=== PATIENT | female | born 1995 | race Caucasian/White ===

== ENCOUNTER 2019-06-06 13:14 | Outpatient (RCR) | payer OTHER, SELFPAY ==
[2019-06-06 14:42] LABS: Hematocrit 34.3 % (37.0-47.0); Hemoglobin 11.7 g/dL (12.0-15.0)
[2019-06-06 14:55] LABS: Glucose 1 Hour PP 50gm Dose 93 mg/dL
[2019-06-06 15:36] LABS: HIV 1/2 Ab P24 Ag Result Negative (Negative)
[2019-06-06 16:07] LABS: Rapid Plasma Reagin Non-Reactive (NonReactive)
[2019-06-08] MEDS: RHO(D) IMMUNE GLOBULIN 300 MCG SYRINGE IM (12:57)
== END 2019-09-04 23:59 | disposition home or self-care (01) ==
LOC: ANHLAB 13:14
PROVIDERS: Visit Provider Advanced Practice Midwife
DX: Z36.89 Encounter for other specified antenatal screening (principal); Z29.13 Encounter for prophylactic Rho(D) immune globulin; O36.0130 Maternal care for anti-D [Rh] antibodies, third trimester, not applicable or unspecified; Z3A.00 Weeks of gestation of pregnancy not specified
CPT/HCPCS: 36415; 82947; 85014; 85018; 86592; 86703; 86900; 86901; 90384; 96372; G0432; J2790

== ENCOUNTER 2019-08-17 13:53 | Observation (INO) | payer OTHER, BC, SELFPAY ==
[2019-08-17 14:30] VITALS: BMI 37.5
[2019-08-17 15:32] LABS: Add Urine Microscopic? YES; Amorphous Sediment Urine Few; Appearance Urine Clear (Clear); Bacteria Urine Trace /hpf; Bilirubin Urine Negative (Negative); Blood Urine Negative (Negative); Color Urine Yellow (Yellow); Glucose Urine UA Negative (Negative); Ketones Urine Trace mg/dL (Negative); Leukocyte Esterase Ur Trace LEU/UL (NEGATIVE); Mucus Urine Few /lpf; Nitrate Urine Negative (Negative); Protein Urine Negative (Negative); RBC Urine 0-2 /hpf (0-2); Specific Grav Ur 1.018 (1.001-1.035); Squamous Epithelial Cell Urine Rare /hpf (Few); Urobilinogen Urine Negative mg/dL (<2.0); WBC Urine 0-3 /hpf (0-3)
--- NOTE | 2019-08-17 15:45 | PCDIET ---
PT STATES THAT SHE WAS FEELING CONTRACTIONS THIS MORNING BUT IT SPACED OUT. SHE WAS CONCERNING THAT SHE HAD CONTRACTIONS THIS AM 10 MIN APART. DENIES LEAKING FLUID, VAGINAL BLEEDING. OFF MONITOR AT THIS TIME DUE TO REACTIVE TRACING AND NO CONTRACTIONS. SHE STATES SHE HAS BEEN THROWING UP SINCE THIS MORNING AND JUST DONT FEEL GOOD. WILL TALK TO DR. TOMLINSON AND REQUEST NISHAAN ORDER.
--- NOTE | 2019-08-17 17:11 | PC.NURSE ---
TALKED TO PT AND ASKED IF SHE WAS FEELING ANY CONTRACTIONS. SHE SATES SHE DOESN'T FEEL CONTRACTIONS NOW, BUT SHE WAS HAVING EVERY 10 MIN THIS MORNING. SHE SATES SHE HAS BEEN THROWING UP AND HAVE NOT FEELING GOOD. NO LEAKING REPORTED. UA HAS BEEN SENT. WILL CONTACT DR TOMLINSON.
--- NOTE | 2019-08-21 14:20 | PM.OBTRLD ---
OB - Triage/Final Diagnosis Evaluation Laboratory results: Laboratory Tests 08/17/19 15:18 Urine Color Yellow Urine Appearance Clear Urine pH 6.0 Ur Specific [place] 1.018 Urine Protein Negative Urine Glucose (UA) Negative Urine Ketones Trace Ur Blood (Man) Negative Urine Nitrate Negative Urine Bilirubin Negative Urine Urobilinogen Negative Ur Leukocyte Esterase Trace H Urine RBC 0-2 Urine WBC 0-3 Ur Squamous Epith Cells Rare Amorphous Sediment Few H Urine Bacteria Trace Urine Mucus Few H Final Diagnosis (1) contractions: Code(s): O47.9 - False labor, unspecified Status: Acute
== END 2019-08-17 16:32 | disposition home or self-care (01) ==
PROVIDERS: Admitting Provider Obstetrics & Gynecology; Visit Provider Obstetrics & Gynecology
DX: O47.03 False labor before 37 completed weeks of gestation, third trimester (principal); Z3A.35 35 weeks gestation of pregnancy
CPT/HCPCS: 81001; 87086; A9270; G0378; G0379

== ENCOUNTER 2019-09-16 05:53 | Inpatient (IN) | payer BC, SELFPAY ==
[2019-09-16] VITALS (121 sets, daily range): BP systolic 86–164; BP diastolic 49–115; PULSE 27–245; RESP 18; TEMP 36.2–37.2; O2SAT 78–100; BMI 38.9
--- NOTE | 2019-09-16 05:53 | LDADM ---
This patient, Isabella Contreras, was admitted to Labor/Delivery/Recovery 105 on 09/16/19 at 05:53. Plans for labor, pain management and were discussed with patient. Patient/family oriented to hospital policies and general routines including ID bracelet, bed and alarms, visiting hours, pain management, procedures, bathroom and other care routines, personal items, smoking policy, room service/diet and guest tray routines, infant security routines, and visiting hours. Patient/Family are encouraged to report perceived risks to care and to ask questions if they do not understand what they are told or what they should do. See OBIX for further documentation.
[2019-09-16] MEDS: AMPICILLIN 2 GM/NS 100 ML 2 GM/100 ML BAG IVPB (06:45)
[2019-09-16] MEDS: LACTATED RINGERS 1,000 ML 125 ML IV CONT ×2 (06:54→10:00)
[2019-09-16 07:01] LABS: Basophils Percent Auto 0.4 % (0.2-1.2); Eosinophils Absolute Auto 0.1 K/mm3 (0-0.3); Eosinophils Percent Auto 1.1 % (0-4.4); Hematocrit 33.8 % (37.0-47.0); Hemoglobin 11.2 g/dL (12.0-15.0); Immature Granulocyte Absolute 0.05 K/mm3 (0.00-0.031); Immature Granulocyte Percent A 0.7 % (0-0.5); Lymphocytes Absolute Auto 1.87 K/mm3 (0.9-3.2); Lymphocytes Percent Auto 25.8 % (18.3-44.2); Mean Corpuscular HGB Conc 33.1 g/dl (32-36); Mean Corpuscular Hemoglobin 27.9 pg (26-34); Mean Corpuscular Volume 84.1 fl (80-100); Mean Platelet Volume 11.7 fl (7.4-10.4); Monocytes Absolute Auto 0.7 K/mm3 (0.1-0.6); Monocytes Percent Auto 9.5 % (2.6-8.5); Neutrophils Absolute Auto 4.5 K/mm3 (1.3-6.7); Neutrophils Percent Auto 62.5 % (45.5-73.1); Platelet Count Result 215 k/mm3 (150-375); Red Blood Count 4.02 M/mm3 (4.2-5.4); White Blood Count 7.3 K/mm3 (4.5-10.0)
[2019-09-16] MEDS: OXYTOCIN 30 UNITS/NS 500 ML 30 UNITS/500 ML BAG IV CONT (07:10)
--- NOTE | 2019-09-16 08:48 | WPDOBADMIT ---
Obstetrics - Admit Note Admission Note: 24 y/o @ 39w2d here for induction of labor Cervix2-3/thick/-2 AROM moderate amount of clear odorless fluid. Anticipate record reviewed. No pertinent additions to the history and/or any subsequent changes in the physical findings that are not consistent with the expected course of the were found. Additions to the history and/or subsequent changes in the physical findings follow. None.
[2019-09-16] MEDS: AMPICILLIN 1 GM/NS 50 ML 1 GM/50 ML BAG IVPB (10:48)
--- NOTE | 2019-09-16 14:55 | P.PCNOB_ITS ---
OB - Delivery Note Procedure Delivery date: 09/16/19 Induction method: per pitocin protocol Delivery monitor: external FHT and external uterine Route of delivery: Episiotomy description: None Laceration description: Perineal - 1st Degree Delivery repair: vicryl Estimated blood loss (mL): 184 Anesthesia type: Epidural [place] Baby Date of : 09/16/19 Time of : 14:19 Weeks of gestation at delivery: 39 Weight (pounds): 8 Weight (ounces): 0 presentation: vertex position: Left Occiput Anterior Placenta delivery description: Spontaneous score one minute: 9 score five minutes: 9
[2019-09-16] MEDS: OXYTOCIN 30 UNITS/NS 500 ML 30 UNITS/500 ML BAG 125 UNITS IV CONT (15:35)
[2019-09-16] MEDS: BENZOCAINE 20% AER SPR (*SP) 56 GM CAN 1 SPRAY TOPICAL (17:15)
[2019-09-16] MEDS: WITCH HAZEL 40 PADS 1 PAD TOPICAL (17:15)
[2019-09-16 17:21] LABS: HIV 1/2 Ab P24 Ag Result Negative (Negative)
[2019-09-16] MEDS: IBUPROFEN 600 MG TABLET PO (17:44)
[2019-09-17] MEDS: IBUPROFEN 600 MG TABLET PO (03:50)
[2019-09-17 04:56] LABS: Hematocrit 30.6 % (37.0-47.0); Hemoglobin 9.9 g/dL (12.0-15.0)
[2019-09-17 08:50] VITALS: BP 122/73; PULSE 70; RESP 20; TEMP 36.6
[2019-09-17] MEDS: POLYSACCHARIDE IRON COMPLEX 150 MG CAPSULE PO (09:20)
[2019-09-17] MEDS: MULTIVIT/MIN/PREN/FOL AC/IRON TABLET 1 TAB PO (09:20)
[2019-09-17] MEDS: DOCUSATE SODIUM 100 MG CAPSULE PO (09:20)
[2019-09-17] MEDS: TETANUS,DIPHTHERIA,AC PERTUSSIS ADULT (0.5 ML) BOOSTRIX IM (09:20)
--- NOTE | 2019-09-17 10:03 | WPDANLDPN2 ---
Anes-Prog Note L&D Date/Time: 09/17/19 10:03 Comfortable throughout: labor and delivery Neuraxial method: epidural Epidural/Spinal procedure site: clean & non-tender Neuro status: Neuro function grossly intact. Cardiovascular status: normal Respiratory status: normal Airway patency: baseline Mental status: baseline Post-Op hydration status: normal Vital Signs: Last Vital Signs Temp 36.6 C 09/17/19 08:50 Pulse 70 09/17/19 08:50 Resp 20 09/17/19 08:50 BP 122/73 09/17/19 08:50 Pulse Ox 99 09/16/19 19:37 I/O: Intake & Output 09/16/19 09/17/19 09/17/19 23:59 07:59 15:59 Output Total 150 Balance -150 Post-procedural complaints: none Patient feedback: Patient satisfied with anesthetic care.
--- NOTE | 2019-09-17 12:37 | PM.OBPNVD ---
OB - PN: Subj Subjective Date/time seen: 09/17/19 12:37 OB - PN: Obj Data Labs CBC & Chem 7: 09/17/19 04:35 Labs: Laboratory Results - last 24 hr 09/16/19 09/17/19 16:21 04:35 Hgb 9.9 L Hct 30.6 L HIV 1&2 Ab/P24 Ag 4thGn Negative OB - PN A/P Plan day: 1 Plan: routine care and discharge home (RTC 4 weeks) Time Spent With Patient Time: Total time spent is greater than 50% in coordination of care (as documented) at patient's floor/unit and/or counseling patient: Time with patient: less than 15 minutes Review of Systems Review of Systems: All systems reviewed & are unremarkable except as noted in HPI and below Exam Narrative: Exam Narrative: Fundus firm and vaginal flow controlled. Const: General: comfortable Chest: Breast/axilla inspection: normal inspection of the breasts Resp: Effort & Inspection: normal respiratory effort Cardio: Rate: regular rate Psych: Appearance: grossly normal Affect: normal affect Attitude: cooperative Judgement: Good judgement present (Psych)
--- NOTE | 2019-09-17 12:38 | P.DS_ITS ---
DS: Admitting Diagnosis Admitting Diagnosis Admitting Diagnosis: Induction of labor DS: Discharge Diagnosis Discharge Diagnosis (1) Vaginal delivery: Code(s): O80 - Encounter for full-term uncomplicated delivery Status: Acute OB - DS: Summary OB Procedures : None OB Procedures Intrapartum: Spontaneous Vag Delivery OB Procedures: : None Time Spent with Patient Time attestation: Total time spent providing and/or coordinating discharge services: DS: Data Data Completed and Pending Labs on day of discharge: Labs from last 24 hours 09/17/19 09/16/19 04:35 16:21 Hgb 9.9 L Hct 30.6 L HIV 1&2 Ab/P24 Ag 4thGn Negative Discharge Plan Discharge Attending physician on discharge: Priscilla Medeiros Discharging Clinician: Priscilla Medeiros Patient Disposition: Home, Self-Care Activity: pelvic rest Diet: as tolerated Patient Instructions: Antibiotic Form Stand Alone Forms: General Discharge Information Follow-up/Referrals: Priscilla Medeiros, CNM [Certified Nurse Production Editor] - Discharge Medications: Continued PNV cmb#95-ferrous fumarate-FA [] 28 mg iron- 800 mcg Tablet 1 tablet PO DAILY RF: 0 Date of admission: 09/16/19 05:53 Primary Care Provider: PHYSICIAN,MARKETING INFORMATION COORDINATOR Admitting Provider: Brittany Higginbotham Attending physician on admission: Brittany Higginbotham
[2019-09-18 07:54] VITALS: BP 138/78; PULSE 87; RESP 20; TEMP 37.2; O2SAT 99
[2019-09-18 10:02] LABS: Rapid Plasma Reagin Non-Reactive (NonReactive)
== END 2019-09-17 15:57 | disposition home or self-care (01) | DRG 807 ==
LOC: ANHLDR 06:02 → ANHOB2 17:29
PROVIDERS: Advanced Practice Midwife; Admitting Provider Obstetrics & Gynecology; Visit Provider Obstetrics & Gynecology
DX: O99.824 Streptococcus B carrier state complicating childbirth (principal); Z37.0 Single live birth; O70.0 First degree perineal laceration during delivery; Z3A.39 39 weeks gestation of pregnancy
CPT/HCPCS: 36415; 85014; 85018; 85025; 86592; 86703; 86850; 86900; 86901; 90715; A9270; G0432; J0290; J2590; J2795; J7120

== ENCOUNTER 2020-04-12 14:55 | Emergency (ER) | payer OTHER, SELFPAY ==
[2020-04-12 15:37] VITALS: BP 128/82; PULSE 67; RESP 16; TEMP 36.6; O2SAT 98
[2020-04-12 16:37] LABS: Basophils Percent Auto 0.6 % (0.2-1.2); Eosinophils Absolute Auto 0.1 K/mm3 (0-0.3); Hematocrit 42.4 % (37.0-47.0); Hemoglobin 14.5 g/dL (12.0-15.0); Immature Granulocyte Absolute 0.01 K/mm3 (0.00-0.031); Immature Granulocyte Percent A 0.2 % (0-0.5); Lymphocytes Absolute Auto 2.59 K/mm3 (0.9-3.2); Lymphocytes Percent Auto 39.5 % (18.3-44.2); Mean Corpuscular HGB Conc 34.2 g/dl (32-36); Mean Corpuscular Hemoglobin 29.2 pg (26-34); Mean Corpuscular Volume 85.5 fl (80-100); Mean Platelet Volume 11.2 fl (7.4-10.4); Monocytes Absolute Auto 0.4 K/mm3 (0.1-0.6); Monocytes Percent Auto 5.9 % (2.6-8.5); Neutrophils Absolute Auto 3.4 K/mm3 (1.3-6.7); Neutrophils Percent Auto 51.8 % (45.5-73.1); Platelet Count Result 240 k/mm3 (150-375); Red Blood Count 4.96 M/mm3 (4.2-5.4); Red Cell Distribution Width 12.4 % (11.5-14.5); White Blood Count 6.6 K/mm3 (4.5-10.0)
--- NOTE | 2020-04-12 16:50 | ECG_ITS ---
Measurements Intervals [place] Rate: 64 P: 51 MD: 168 QRS: 38 QRSD: 89 T: 30 QT: 413 QTc: 427 Interpretive Statements SINUS RHYTHM WITH MARKED SINUS ARRHYTHMIA NORMAL ECG Electronically Signed On 04-12-2020 19:21:26 KITCHEN DESIGNER by Michael Trammell D.O.
--- NOTE | 2020-04-12 16:51 | ED.RECABL ---
HPI - Recheck/Abnormal Lab/Rx General Chief Complaint: Recheck/Abnormal Lab/Rx Stated Complaint: possible low HGb, sent from OB Time Seen by Provider: 04/12/20 16:44 Source: patient Mode of arrival: ambulatory Limitations: no limitations History of Present Illness HPI narrative: This patient is 24 year old female who presents for evaluation of possible anemia. She is complaining of weakness and lightheadedness. She states she feels clumsy but she denies fall or syncope. She reports mild frontal headache. She denies nausea, vomiting, chest pain, shortness of breath , abdominal pain or fever. She reports history of anemia in the past so she was concerned her symptoms were due to anemia. She reports having longer than usual menstrual cycles although she does not having bleeding now. Related Data Home Medications Medication Instructions Recorded Confirmed PNV cmb#95-ferrous fumarate-FA 1 tablet PO DAILY 08/25/19 08/25/19 [] Allergies Allergy/AdvReac Type Severity Reaction Status Date / Time No Known Allergies Allergy Verified 04/12/20 15:42 Review of Systems Review of Systems: All systems reviewed & are unremarkable except as noted in HPI and below Constitutional: Constitutional: Denies chills, Reports fatigue and Denies fever(s) Eyes: Eyes: Denies change in vision ENT: Reports dizziness Cardiovascular: Cardiovascular: Denies chest pain Respiratory: Respiratory: Denies cough and Denies dyspnea Gastrointestinal: Gastrointestinal: Denies abdominal pain, Denies diarrhea, Denies nausea and Denies vomiting PMFSH Past Medical History Medical History (Updated 04/12/20 @ 19:40 by Araseli Damon MD) Anemia Family History Family History (Updated 08/25/19 @ 12:36 by Meredith Garner RN) Mother Pulmonary embolism Anemia Grandparent Diabetes mellitus Social History Social History Smoking status: Former smoker Second hand tobacco smoke exposure: No Substance use: never Gender identity (if verbalized by the patient): Female Spiritual care concerns: No Exam Narrative: Exam Narrative: GENERAL: Well-appearing, well-nourished, and in no acute distress. HEAD: Normocephalic, atraumatic EYES: PERRLA and EOMI, conjunctiva clear without discharge THROAT:Mucous membranes moist, Oropharynx normal without erythema, exudate, peritonsillar swelling or fluctuance NECK: Supple, without lymphadenopathy or mass RESPIRATORY: No respiratory distress, Airway patent, Respirations non-labored, Clear to auscultation without rales, rhonchi or wheeze HEART: Regular rate and rhythm. No murmur heard. Normal peripheral pulses. ABDOMEN: Soft, nontender, nondistended, normal active bowel sounds. No masses. No rebound or guarding, No organomegaly. EXTREMITIES: No edema, normal strength with full range of motion. SKIN: Warm, dry, normal color without rash NEURO: Alert and oriented x3. CN 2-12 grossly intact. No focal deficits. steady gait PSYCH: Normal mood and affect. Course Reevaluation(s) Reevaluation #1: I Discussed with patient labs and EKG are unremarkable. She started crying stating that she does not feel well. She reports frequent headaches since her and she states she has intermittent blurred vision. I discussed I will order CT scan brain to assess. Date: 04/12/20 Time: 18:27 Reevaluation #2: Nursing staff states patient does not want CT scan. I went to speak to patient and her mother. She states she does not want CT . She already had IV taken out so medications could not be given. She is signing AMA which note risk of AMA Date: 04/12/20 Time: 18:45 Vital Signs Vital signs: Vital Signs Temperature 97.8 F 04/12/20 15:37 Pulse Rate 67 04/12/20 15:37 Respiratory Rate 16 04/12/20 15:37 Blood Pressure 128/82 04/12/20 15:37 Pulse Oximetry 98 04/12/20 15:37 Temperature 97.8 F 04/12/20 15:37 Pulse Rate 75 04/12/20 17:29 Respiratory Rate 16 0
[2020-04-12 17:13] LABS: Alanine Aminotransferase 21 U/L (4-35); Albumin Level 4.7 g/dL (3.5-5.1); Alkaline Phosphatase 60 U/L (38-126); Anion Gap 6 mmol/L (8-16); Aspartate Amino Transferase 27 U/L (14-36); Bilirubin,Total 0.4 mg/dL (0.2-1.3); Blood Urea Nitrogen 11 mg/dL (7-17); Calcium 9.9 mg/dL (8.4-10.2); Carbon Dioxide 27 mmol/L (22-30); Chloride 106 mmol/L (98-107); Estimated CRCL calculation 150 ml/min; Estimated Glomerular Filt Rate > 60; Glucose 89 mg/dL (65-105); Potassium 4.2 mmol/L (3.4-5.0); Sodium 139 mmol/L (137-145)
[2020-04-12 17:28] VITALS: BP 136/82; PULSE 66
[2020-04-12 17:29] VITALS: BP 140/88; BP 163/107; PULSE 57; PULSE 75
[2020-04-12] MEDS: SODIUM CHLORIDE 0.9% IV 1,000 ML 999 ML IV CONT (17:46)
[2020-04-12 18:06] LABS: INR 0.9; Prothrombin Time 12.6 Seconds (11.1-14.7)
--- NOTE | 2020-04-12 18:30 | PC.NURSE ---
Called to room. Pt sitting on stretcher dressed and crying. States she doesn't want a CT or further meds since the doctor can't find anything wroing with her. Explained to pt that a CT was ordered because of her symptoms of headache and blurred vision.
== END 2020-04-12 18:43 | disposition left against medical advice (07) ==
PROVIDERS: Emergency Medicine; Emergency Provider General Practice; PCP Family Medicine
DX: R53.1 Weakness (principal); R51.9 Headache, unspecified; Z86.2 Personal history of diseases of the blood and blood-forming organs and certain disorders involving the immune mechanism; Z87.891 Personal history of nicotine dependence
CPT/HCPCS: 36415; 80053; 83735; 85025; 85610; 85730; 93005; 99283; J7030

== ENCOUNTER 2023-03-06 11:35 | Emergency (ER) | payer OTHER, SELFPAY ==
[2023-03-06 11:53] VITALS: BP 141/87; PULSE 87; RESP 16; TEMP 37; O2SAT 97
--- NOTE | 2023-03-06 12:40 | ED.URI ---
HPI - URI/Sore Throat General Chief Complaint: Upper Respiratory Infection Stated Complaint: Congestion Time Seen by Provider: 03/06/23 12:42 Source: patient, RN notes reviewed and old records reviewed Mode of arrival: ambulatory Limitations: no limitations History of Present Illness HPI Narrative: 27 year old female who presents to [facility] care with complaints of cough, hoarseness,runny nose and congestion since 2 days ago. Patient reports that she has not had a sore throat and has not had any fevers. Patient reports that she took one dose of left over Amoxicillin she had, used her son's nebulizer for 2 treatments and has taken Robitussin and taken some Mucinex DM.Patient reports no known history of asthma,denies any shortness of breath or any noted wheezing,respirations nonlabored with SAO2 97% on room air. MD elicited complaint: cough, rhinorrhea, nasal congestion and other (hoarseness) Onset (ago): day(s) (2) Able to tolerate fluids by mouth: Yes Treatments prior to arrival: other (Robitussin, Mucous DM, used son's nebulizer and also one dose of left over Amoxicillin) Related Data Home Medications Medication Instructions Recorded Confirmed norgestimate 0.25 mg-ethinyl tablet 03/06/23 estradiol 35 mcg tablet (Estarylla) Allergies Allergy/AdvReac Type Severity Reaction Status Date / Time No Known Allergies Allergy Verified 03/06/23 11:46 Review of Systems Review of Systems: CONSTITUTIONAL: Denies malaise, chills, sweats, or fever. EYES: Denies visual changes, redness, or discharge. ENT: Reports rhinorrhea, congestion, sinus pain,no otalgia and no sore throat, reports hoarseness CARDIOVASCULAR: Denies chest pain, palpitations, or edema. RESPIRATORY: Reports cough.? Denies dyspnea. GASTROINTESTINAL: Denies abdominal pain, nausea, vomiting, diarrhea SKIN: Denies rash or itching. MUSCULOSKELETAL: Denies myalgia. NEUROLOGIC: Denies headache. All systems reviewed & are unremarkable except as noted in HPI and below PMFSH Past Medical History Medical History (Updated 03/08/23 @ 17:19 by Nani Armando NP) Anemia Surgical History Surgical History (Updated 03/08/23 @ 17:15 by Nani Armando NP) History of surgery on arm repair of fractured ulna Family History Family History (Updated 08/25/19 @ 12:36 by Meredith Garner RN) Mother Pulmonary embolism Anemia Grandparent Diabetes mellitus Social History Social History Smoking status: Former smoker Second hand tobacco smoke exposure: No Substance use: never Gender identity (if verbalized by the patient): Female Sexual Orientation (if Verbalized by the Patient): Straight or Heterosexual Spiritual care concerns: No Comments At time of signature, agree with nursing past medical, surgical, social and family history. There is no relevant family history pertinent to the presenting complaint Exam Narrative: GENERAL: Well-appearing, well-nourished, and in no acute distress. HEAD: Normocephalic EYES: PERRLA, conjunctivae clear ENT: Nares clear, turbinates edematous and erythematous, clear discharge. Mucous membranes moist. TM pearly ward with dull light reflex bilaterally; no tragal tenderness. Oropharynx erythematous without lesions. Tonsils not enlarged and without exudate, no drooling, positive for hoarseness, no trismus, uvula midline.post nasal drainage noted NECK: Supple. No lymphadenopathy CHEST: Clear to auscultation, breath sounds equal. No wheezing, rhonchi, rales, or stridor. No respiratory distress, speaks in full sentences.cough,SAO2 97% on room air HEART: Regular rate and rhythm. No murmur heard. SKIN: Warm, dry, no rash. NEURO: Alert and oriented x3. PSYCH: Normal mood and affect Course Course Emergency Course: Patient is aware of diagnosis, understands and agrees to treatment plan.? Anticipatory guidance given.? Patient agrees to follow-up as directed and is aware
== END 2023-03-06 13:20 | disposition home or self-care (01) ==
PROVIDERS: Emergency Provider Registered Nurse
DX: J06.9 Acute upper respiratory infection, unspecified (principal)
CPT/HCPCS: 99213; G0463

== ENCOUNTER 2024-10-02 08:46 | Emergency (ER) | payer OTHER, SELFPAY ==
[2024-10-02 08:56] VITALS: BP 97/80; PULSE 109; RESP 16; TEMP 36.2; O2SAT 100
--- NOTE | 2024-10-02 09:08 | ED_ITS ---
HPI - General Adult General Chief complaint: Upper Respiratory Infection Stated complaint: Fever/Body aches Time Seen by Provider: 10/02/24 09:08 Source: patient Mode of arrival: ambulatory Limitations: no limitations History of Present Illness HPI narrative: 29-year-old female presents with complaint of fever, chills, sweats, fatigue, headache, joint pain for 2-3 days. Afebrile at this time. Denies nausea vomi ting diarrhea. No chest pain, shortness of breath. Denies congestion, sore throat, cough. 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 All systems reviewed and negative except as noted above. Related Data Home Medications ?Medication ?Instructions ?Recorded ?Confirmed ?Last Taken ?Type norgestimate 0.25 mg-ethinyl 1 tablet PO DAILY 03/06/23 10/02/24 Unknown History estradiol 0.035 mg tablet (Estarylla) dextroamphetamine-amphetamine ER 50 mg PO DAILY 10/02/24 10/02/24 Unknown History 25 mg 24hr capsule,extend release Allergies Allergy/AdvReac Type Severity Reaction Status Date / Time No Known Allergies Allergy Verified 10/02/24 08:59 Review of Systems Review of Systems: CONSTITUTIONAL: Reports fever, chills, or sweats. Reports fatigue EYES: Denies visual changes, redness, or discharge. ENT: Denies rhinorrhea, congestion, sore throat, or otalgia. CARDIOVASCULAR: Denies chest pain, palpitations, or edema. RESPIRATORY: Denies cough or dyspnea. GASTROINTESTINAL: Denies abdominal pain, nausea, vomiting, or diarrhea. GENITOURINARY: Denies dysuria or hematuria. SKIN: Denies rash or itching. MUSCULOSKELETAL: Denies back pain. Reports joint pain, or myalgia. NEUROLOGIC: Denies headache, numbness, or weakness. PSYCHIATRIC: Denies anxiety or depression. All other systems reviewed are negative, except as documented in HPI. [facility] Past Medical History Medical History (Updated 10/02/24 @ 09:38 by Brenna Minaya NP) Anemia Surgical History Surgical History (Updated 03/08/23 @ 17:15 by Nani Armando NP) History of surgery on arm repair of fractured ulna Family History Family History (Updated 08/25/19 @ 12:36 by Meredith Garner RN) Mother Pulmonary embolism Anemia Grandparent Diabetes mellitus Social History Social History Smoking status: Former smoker Second hand tobacco smoke exposure: No Substance use: never Gender identity (if verbalized by the patient): Female Sexual Orientation (if Verbalized by the Patient): Straight or Heterosexual Spiritual care concerns: No Comments At time of signature, agree with nursing past medical, surgical, social and family history. There is no relevant family history pertinent to the presenting complaint. Exam Narrative: GENERAL: This is a well-nourished, well-developed patient, in no apparent d istress. HEAD: normocephalic, atraumatic. EYES: PERRL. Sclera clear/white. Vision is grossly intact. EARS: External ears normal, auditory canals clear and without drainage, TMs normal without perforation. Hearing grossly intact. NOSE: External nose normal with no obvious nasal discharge, nares without redness, no rhinorrhea. THROAT: Mucous membranes moist, posterior pharynx clear. NECK: Neck supple, non-tender without lymphadenopathy, masses or thyromegaly. CARDIOVASCULAR: Regular rate and rhythm without murmurs, gallops, or rubs. RESPIRATORY: Clear to auscultation. Breath sounds equal bilaterally. No wheezes, rales, or rhonchi. SKIN: warm, Dry, intact with no suspicious lesions or rash, good texture and turgor. NEURO: awake, alert, and oriented to person, place and time. There were no obvious focal neurologic abnormalities. EXTREMITIES: No joint tenderness, effusion, or edema noted. Course Course Level of Care: Express Care Visit Vital Signs Vital signs: Vital Signs Temperature 36.2 C L 10/02/24 08:56 Pulse Rate 109 H 10/02/24 08:56 Respiratory Rate 16 10/02/24 08:56 Blood Pressure 97/80 L 10/02/24 08:56 Pulse Oximetry 100 10/02/24 08:56 Oxygen Delivery Room Air 10/02/24 08:56 Temperature 36.2 C L 10/02/24 08:56 Pulse Rate 109 H 10/02/24 08:56 Respiratory Rate 16 10/02/24 08:56 Blood Pressure 97/80 L 10/02/24 08:56 Pulse Oximetry 100 10/02/24 08:56 Oxygen Delivery Room Air 10/02/24 08:56 Reviewed Medical Decision Making MDM Narrative Medical decision making narrative: Negative COVID and influenza. Patient is well-appearing, nontoxic. Lungs clear to auscultation. No URI, urinary or GI symptoms. Recommend patient take [id number]-rogdsgy medications to treat viral symptoms. Will follow-up with primary care physician if symptoms are not improving. Differential Diagnosis Differential Diagnosis: COVID, influenza, viral infection Vital Signs Vital Signs: Vital Signs Temperature 36.2 C L 10/02/24 08:56 Pulse Rate 109 H 10/02/24 08:56 Respiratory Rate 16 10/02/24 08:56 Blood Pressure 97/80 L 10/02/24 08:56 Pulse Oximetry 100 10/02/24 08:56 Oxygen Delivery Room Air 10/02/24 08:56 Temperature 36.2 C L 10/02/24 08:56 Pulse Rate 109 H 10/02/24 08:56 Respiratory Rate 16 10/02/24 08:56 Blood Pressure 97/80 L 10/02/24 08:56 Pulse Oximetry 100 10/02/24 08:56 Oxygen Delivery Room Air 10/02/24 08:56 Lab Data Labs: Lab Results 10/02/24 Range/Units 09:29 POC Influenza A Ag Negative (Negative) POC Influenza B Ag Negative (Negative) POC SARS CoV-2 Ag Negative (Negative) Discharge Plan Discharge Clinical Impression: Acute viral syndrome Patient Disposition: Home Condition: Stable Instructions: Viral Syndrome (ED) Additional Instructions: Your COVID and influenza test was negative today. Your symptoms are viral and may last 7-10 days. Take ibuprofen or Tylenol every 6-8 hours as needed for fever and pain. Drink at least 64 oz of water a day. If symptoms are not improving follow-up with your primary care physician for further evaluation. If you have severe pain, chest pain or shortness of breath go to the ER Patient Language: Korean Prescriptions: No Action norgestimate-ethinyl estradiol [Estarylla] 0.25-35 mg-mcg tablet 1 tablet PO DAILY dextroamphetamine-amphetamine 25 mg capsule,extended release 24hr 50 mg PO DAILY Follow-up/Referrals: PHYSICIAN,DRY CLIPPER TENDER [Primary Care Provider] - Stand Alone Forms: Work/School Release IP Time of Disposition: 09:38
[2024-10-02 09:31] LABS: EDCOVIDSCREEN Negative (Negative); EDINFLUASCREEN Negative (Negative); EDINFLUBSCREEN Negative (Negative)
== END 2024-10-02 09:43 | disposition home or self-care (01) ==
PROVIDERS: Emergency Provider Nurse Practitioner Family
DX: B34.9 Viral infection, unspecified (principal); Z20.822 Contact with and (suspected) exposure to COVID-19; Z87.891 Personal history of nicotine dependence
CPT/HCPCS: 87426; 87804; 99212; G0463

== ENCOUNTER 2024-10-03 07:13 | Emergency (ER) | payer OTHER, SELFPAY ==
--- NOTE | ~2024-10-03 | XR_ITS ---
EXAMINATION: XR chest 1V 10/03/2024 10:18 INDICATION: Myalgias. Difficulty breathing. Shortness of breath. PROCEDURE: PA view of the chest COMPARISON: No prior studies for comparison. FINDINGS: The lungs are clear. The cardiomediastinal silhouette is within normal limits. There are no pleural effusions. There is no pneumothorax suspected. IMPRESSION: 1: NO ACUTE CARDIOPULMONARY DISEASE. Reviewed, dictated and finalized at location A.
--- NOTE | ~2024-10-03 | CT_ITS ---
EXAMINATION: CT cervical spine wo con DATE: 10/03/2024 10:13 INDICATION: Neck pain TECHNIQUE: Computed tomography (CT) of the cervical spine was performed without intravenous contrast. The dose-length product was 233 mGy-cm. Automated exposure control and iterative reconstruction tech nique were employed. COMPARISON: None FINDINGS: Vertebral body heights are maintained. No significant disc narrowing. There is mild degener ative change of the uncinate processes bilaterally. Odontoid process is normal. Craniovertebral junct ion is normal. No acute fracture or traumatic malalignment. No evidence for perched facet. Lung apice s are normal. IMPRESSION: 1. No acute abnormality of the cervical spine. Reviewed, dictated and finalized at location A.
--- NOTE | ~2024-10-03 | CT_ITS ---
EXAMINATION: CT BRAIN W/O DATE: 10/03/2024 10:13 INDICATION: Confusion. Body aches.. TECHNIQUE: Computed tomography (CT) of the head was performed without intravenous contrast. The dose- length product was 529.67 mGy-cm. Automated exposure control and iterative reconstruction technique w ere employed. COMPARISON: No prior studies for comparison. FINDINGS: Normal brain parenchymal volume for age. Normal ward-white differentiation. No acute intrac ranial hemorrhage, infarction, mass or mass effect. No ventriculomegaly or midline shift. Midline sagittal images demonstrate a normal corpus callosum, c raniovertebral junction and sella turcica. Basilar cisterns are patent. Paranasal sinuses and mastoids are pneumatized. No depressed skull fractures. IMPRESSION: 1. No acute intracranial abnormality. Reviewed, dictated and finalized at location A.
--- NOTE | ~2024-10-03 | CT_ITS ---
EXAMINATION: CTA chest PE abdomen pel DATE: 10/03/2024 11:58 CDT INDICATION: Shortness of breath and fevers. Abdomen pain. UTI. TECHNIQUE: Computed tomographic angiography (CTA) of the chest, abdomen, and pelvis was performed wit hout and with 100 mL Omnipaque-350 intravenous contrast. The dose-length product was 594.87 mGy-cm. M aximum intensity projection 3D-reconstructions of the aorta and other arteries were constructed by giovanna menon technologist on a separate workstation. Automated exposure control and iterative reconstruction meng hnique were employed. COMPARISON: None. FINDINGS: CHEST CTA: Study technically adequate without evidence for pulmonary embolism. No significant vascular abnormali ty. Heart size normal. No pleural or pericardial effusion. No endobronchial lesions. No focal airspac e consolidation no thoracic lymphadenopathy. No evidence for aortic aneurysm or dissection. ABDOMEN AND PELVIS CTA: No significant vascular abnormality. The liver, spleen, pancreas, adrenal glands are unremarkable. Th ere is patchy bilateral hypoperfusion of the kidneys. There is mild urothelial thickening on the righ t and left. No significant hydronephrosis. Nonobstructive bowel gas pattern. No acute osseous abnorma lity. No abnormal pelvic masses or fluid collections. No lymphadenopathy. Gallbladder is present. The liver, spleen, pancreas are unremarkable. IMPRESSION: 1. Patchy hypoperfusion of the kidneys with areas of urothelial thickening centered in the region of the renal pelvis bilaterally. Findings compatible with ascending urinary tract infection with pyelone phritis. Reviewed, dictated and finalized at location A. IMPRESSION: 1. Patchy hypoperfusion of the kidneys with areas of urothelial thickening cent ered in the region of the renal pelvis bilaterally. Findings compatible with as cending urinary tract infection with pyelonephritis.
--- OUTSIDE RECORDS SUMMARY | 2024-10-03 07:17 | XMS_ITS | Clinical Summary ---
Author Organization [facility] Virtual Care Address [facility] [place] [address] Phone Care Team Providers Care Welt Treater Name Role Phone Bhavna Holley NP Primary Care Provide r Allergies No known active allergies Medications ethynodiol diac-eth estradiol (KELNOR , ,) 1-35 mg-mcg per tablet TAKE ONE TABLET BY MOUTH EVERY DAY 28 11 09/26/[address] (PROTONIX) 40 mg EC tablet Take 1 tablet (40 mg total) by mouth daily 30 tablet 03/11/2024 Active Immunizations Immunization Administration Dates Next Due Rho (D) Immune Globulin 01/18/2017,09/07/2016 Surgical History Surgery Date Site/Laterality Comments OTHER SURGICAL HISTORY Arm fracture repair Medical History Medical History Date Comments Hx Other Medical History of anem ia; Comments: RED 09/28/2013 - Family History Medical History Relation Name Comments Leukemia Maternal Grandmother Leukemi a; Diabetes Other Family history of Diabetes mellitus; Other Other No family histo ry of breast cancer; Bone cancer Paternal Grandmother Cancer, bone; Relation Name Status Comments Maternal Grandmother Other Paternal Grandmother Social History Tobacco Use Types Packs/Day Years Used Date Smoking Tobacco: Every Day Alcohol Use Standard Drinks/Week Comments Yes 0 (1 standard drink = 0.6 oz pur e alcohol) Personal Safety Answer Date Recorded Have you ever been in or are you currently in a harmful physical or emotional relationship or is someone making you feel afraid or unsafe? Denies 03/11/2024 Comments Unknown Sex and Gender Information Value Date Recorded Sex Assigned at Not on file Legal Sex Female 1:53 AM UROLOGY PHYSICIAN ASSISTANT Gender Identity Female 03/13/2024 7:34 AM UROLOGY PHYSICIAN ASSISTANT Sexual Orientation Straight 03/13/2024 7: 34 AM UROLOGY PHYSICIAN ASSISTANT Obstetrics History Last Filed Vital Signs Vital Sign Reading Time Taken Comments Blood Pressure 131/79 03/11/2024 5:30 PM UROLOGY PHYSICIAN ASSISTANT Pulse 69 03/11/2024 5:30 PM UROLOGY PHYSICIAN ASSISTANT Temperature 36.6 C (97.8 F) 03/11/2024 2:45 PM UROLOGY PHYSICIAN ASSISTANT Respiratory Rate 18 03/11/2024 2:46 PM UROLOGY PHYSICIAN ASSISTANT Oxygen Saturation 100% 03/11/2024 5:30 PM UROLOGY PHYSICIAN ASSISTANT Inhaled Oxygen Concentration - - Weight 86.2 kg (190 lb) 03/11/2024 2:46 PM UROLOGY PHYSICIAN ASSISTANT Height 172.7 cm (5' 8) 03/11/2024 2:46 PM UROLOGY PHYSICIAN ASSISTANT Body Mass Index 28.89 03/11/2024 2:46 PM UROLOGY PHYSICIAN ASSISTANT Plan of Treatment Health Maintenance Due Date Last Done Comments Cervical Cancer Screening 1993 Depression Screening 1993 Hepatitis C Screening 1993 Varicella Vaccines (2 of 2 - 2-dose childhood series) 1997 08/14/1994 Regular Well Visit/Exam 18-64 07/30/2011 Pneumococcal vaccine <65 (1 of 2 - PCV) 2012 Influenza Vaccine (Season Ended) 2024 01/28/20 20 DTaP/Tdap/Td Vaccine (9 - Td or Tdap) 09/16/2029 09/17/2019, 11/02/2016, 03/20/2005, Additional history exists Hepatitis B Screening Completed 05/09/1994 , 1993, 1993 HPV Vaccines Completed 11/04/2007, 08/13, 06/07/2007, Additional history exists Insurance [facility] Care Teams Welt Treater Relationship Specialty Start Date End Date Bhavna Holley NP [address] [place] [address] PCP - General Emergency Medicine 03/11/24
--- OUTSIDE RECORDS SUMMARY | 2024-10-03 07:17 | XMS_ITS | Referral Summary ---
Author Organization [facility] Virtual Care Address [facility] [place] [address] Phone Care Team Providers Care Air Pumper Name Role Phone Bhavna Holley NP Primary Care Provide r Allergies No known active allergies Medications ethynodiol diac-eth estradiol (KELNOR , ,) 1-35 mg-mcg per tablet TAKE ONE TABLET BY MOUTH EVERY DAY 28 09/26/[address] (PROTONIX) 40 mg EC tablet Take 1 tablet (40 mg total) by mouth daily 30 tablet 03/11/2024 Active Immunizations Immunization Administration Dates Next Due Rho (D) Immune Globulin 01/18/2017,09/07/2016 Social History Tobacco Use Types Packs/Day Years [...] on file Legal Sex Female 1:53 AM TAKE OUT WAITRESS Gender Identity Female 03/13/2024 7:34 AM TAKE OUT WAITRESS Sexual Orientation Straight 03/13/2024 7: 34 AM TAKE OUT WAITRESS Last Filed Vital Signs Vital Sign Reading Time Taken Comments Blood Pressure 131/79 03/11/2024 5:30 PM TAKE OUT WAITRESS Pulse 69 03/11/2024 5:30 PM TAKE OUT WAITRESS Temperature 36.6 C (97.8 F) 03/11/2024 2:45 PM TAKE OUT WAITRESS Respiratory Rate 18 03/11/2024 2:46 PM TAKE OUT WAITRESS Oxygen Saturation 100% 03/11/2024 5:30 PM TAKE OUT WAITRESS Inhaled Oxygen Concentration - - Weight 86.2 kg (190 lb) 03/11/2024 2:46 PM TAKE OUT WAITRESS Height 172.7 cm (5' 8) 03/11/2024 2:46 PM TAKE OUT WAITRESS Body Mass Index 28.89 03/11/2024 2:46 PM TAKE OUT WAITRESS Plan of Treatment Not on file Insurance [facility] Care Teams Air Pumper Relationship Specialty Start Date End Date Bhavna Holley NP [address] [place] [address] PCP - General Emergency Medicine 03/11/24
--- OUTSIDE RECORDS SUMMARY | 2024-10-03 07:17 | XMS_ITS | Data Portability ---
Author Organization [facility]- Address [address] [facility] [place] [address] Care Team Providers Care Lime Boiler Name Role Phone SALINAS HENRIK Primary Care Provider [phone] Assessment No assessment recorded. Plan of Treatment Reminders Order Date Submit Date Provider Last Modified By Organization Details Last Modified Time Details Appointments None recorded. Lab None recorded. Referral None recorded. Procedures None recorded. Surgeries None recorded. Imaging None recorded. Medication Orders clindamycin HCl 300 mg capsule 2015 016 Not available 6 04:05:49 clindamycin HCl 150 mg capsule 2015 016 Not available 6 04:05:45 Patient TargetsNo targets recorded. Patient InstructionsNo instructions recorded. Reason for Referral None Reported. Problems No Known Problems Medical Equipment None Reported. Allergies No known drug allergies Medications Name Sig Start Date Stop Date Status Note LastModified by Organization Details LastModified Time clindamycin HCl 300 mg capsule Take 1 capsule 3 times a day by oral route for 7 days. 2015 active Not Available Not Available Not Avai lable fluconazole 150 mg tablet active Not Available Not Available No t Available clindamycin HCl 150 mg capsule Take 1 capsule 3 times a day by oral route for 7 days. 2015 active Not Available Not Available Not Avai lable sulfamethoxazol e 800 mg-trimethoprim 160 mg tablet active Not Available Not Availabl e Not Available Kelnor (28) 1 mg-35 mcg tablet active Not Available Not Available N ot Available Vitals Date Recorded Body height Body weight Body mass index (BMI) Heart rate Respiratory rate Body temperature Systolic And Diastolic Provider Name and Address Organization Details Last Updated DateTime 6 176.53 cm 08583.6 7 g 21.5 kg/m2 150 /min 20 /min 97.3 [degF] 104/70 mm[Hg] Nicolle Menon [place] [facility], 6 16:33:44 Social History None recorded. Functional Status None recorded. Mental Status None recorded. Family History Nothing Reported. Medical History No medical history recorded. Gynecological HistoryNo gynecological history recorded. Obstetrics History GPAL:G 0 P 0 0 0 0 Immunizations Vaccine Type Date Status Note Provider Nam e and Address Organization Details Recorded Time DTP 9 completed Merry Heller null, [place] [facility], 06/08/2019 17:21:01 MMR 9 completed Merry Heller null, [place] [facility], 06/08/2019 17:21:15 Tdap 6 completed Merry Heller null, [place] [facility], 06/08/2019 17:21:30 OPV, trivalent 9 completed Merry Heller null, [place] [facility], 06/08/2019 17:21:49 OPV, trivalent 5 completed Merry Heller null, [place] [facility], 06/09/2019 09:59:41 DTP 5 completed Merry Heller null, [place] [facility], 06/09/2019 10:00:08 Hib, unspecified formulation 5 completed Merry Heller null, [place] [facility], 06/09/2019 10:00:29 Hep B, adolescent or pediatric 4 completed Merry Heller null, [place] [facility], 06/09/2019 10:02:12 Hib, unspecified formulation 4 completed Mer[place] H[place] [facility], 06/09/2019 10:02:41 OPV, trivalent 4 completed Mer[place] [facility], 06/09/2019 10:02:50 DTP 4 completed Mer[place] H[place] [facility], 06/09/2019 10:03:00 OPV, trivalent 4 completed Mer[place] H[place] [facility], 06/09/2019 10:04:01 DTP-Hib 4 completed Mer[place] H[place] [facility], 06/09/2019 10:04:14 Hep B, adolescent or pediatric 5 completed Mer[place] H[place] null[place] [facility], 06/09/2019 10:08:34 MMR 5 completed Mer[place] H[place] [facility], 06/09/2019 10:09:01 varicella 5 completed Merry Heller null[place] [facility], 06/09/2019 10:09:12 DTP-Hib 4 completed [place] [facility], 06/09/2019 10:11:14 HPV, quadrivalent 6 completed Mer[place] H[place] [facility], 06/09/2019 10:17:34 Tdap 7 completed Mer[place] Heller null, [place] [facility], 06/09/2019 10:17:49 Hep B, adolescent or pediatric 4 completed Mer[place] H[place] null, [place] [facility], 06/09/2019 10:21:56 meningococcal ACWY, unspecified formulation 7 completed Mer[place] H[place] null[place] [facility], 06/09/2019 10:23:31 Hep A, ped/adol, 2 dose 7 completed Mer[place] Heller null[place] [facility], 06/09/2019 10:23:46 Hep A, ped/adol, 2 dose 8 completed Mer[place] H[place] null[place] [facility], 06/09/2019 10:23:51 HPV, unspecified formulation 8 completed [place] [facility], 06/09/2019 10:24:04 HPV, unspecified formulation 8 completed [place] [facility], 06/09/2019 10:24:11 HPV, unspecified formulation 8 completed Mer[place] H[place] null[place] [facility], 06/09/2019 10:24:17 Past Encounters Encounter ID Performer Location Encounter Start Date Encounter Closed Date Diagnosis/Indication Diagnosis SNOMED-CT Code Diagnosis ICD10 Code Diagnosis Note [id number] [facility] [address] [place] [address],[address] [place] [address] 07/08/2015 16:25:36 07/09/2015 14:53:20 Abscess [id number] L02.91 Probable MRSA Abscess with surroundin g cellulitis - based upon evidence based medicine, will cover with oral antibiotic due to cellulitis area. I have also given the parent a hand out regarding MRSA and a treatment protocol for eliminatio n of the problem. Will followup with family when culture results are known. Health Concerns Section Related Observation LastModified by Organization Detai ls LastModified Time None Recorded Concern Status LastModified by Organization Details LastModified Time None Recorded Advance Directives Directive None Recorded Payers Insurance Date Sequence Insurance Name Policy Number Policy Traore Covered Member ID Traore Member ID Guarantor Name 07/08/2015 1 [facility] [id number] Mitchell Contreras [id number] sIabella Contreras Notes Date Note Type Note Provider Name and Address Organization Details Recorded Time 07/08/2015 text/html Skin LesionRepor marge bypatient.Location:o ther location (left hip.) Duration:started (2 days ago.) Dischargeyellow-gree n Erythemaerythema Swellingswelling Personal historyhistory of MRSA/staph infection Exposuresno one with similar skin lesion Constitituonalno fever HEENTno current or recent upper respiratory infection Haley Hilario MD [address] [place] [address] [address], [place], [address], [facility], 07/08/2015 19:17:03 OBGyn Episode No OBEpisode recorded.
--- OUTSIDE RECORDS SUMMARY | 2024-10-03 07:17 | XMS_ITS | Clinical Summary ---
Author Organization [email or web address] Address [address] [place] [address] Care Team Providers Care Global Mobility Specialist Name Role Phone Unavailable Primary Care Provider Unavailabl e Source Comments [email or web address],non-owned Affiliates and Associated Physician Practices is amultiple site organization consisting of ambulatory clinics and hospital sitesin [place], [place], [place] and [place]. This disclosure is being madepursuant to the Care Everywhere program and may not contain all information available regarding this patient. Last updated 17.[email or web address] Allergies No known active allergies Medications * Be aware that medications may not be up to date on this document. Alwaysverify current medications with the patient. Vit-Fe Fumarate-FA ( VITAMIN) 27-0.8 MG tablet Take 1 tablet by mouth once daily Active Social History Tobacco Use Types Packs/Day Years Used Date Smoking Tobacco: Never Smokeless Tobacco: Never Tobacco Cessation:Counseling Given: Yes Comments No Sex and Gender Information Value Date Recorded Sex Assigned at Not on file Legal Sex Female 1:29 PM CDT Gender Identity Not on file Sexual Orientation Not on file Last Filed Vital Signs Vital Sign Reading Time Taken Comments Blood Pressure 110/64 03/11/2019 11:17 AM ELECTRICAL TEST ENGINEER Pulse 74 03/11/2019 11:17 AM ELECTRICAL TEST ENGINEER Temperature 37.1 C (98.8 F) 03/11/2019 11:17 AM ELECTRICAL TEST ENGINEER Respiratory Rate 16 03/11/2019 11:17 AM ELECTRICAL TEST ENGINEER Oxygen Saturation 97% 03/11/2019 11:17 AM ELECTRICAL TEST ENGINEER Inhaled Oxygen Concentration - - Weight 83.9 kg (185 lb) 03/11/2019 11:17 AM ELECTRICAL TEST ENGINEER Height 172.7 cm (5' 8) 03/11/2019 11:17 AM ELECTRICAL TEST ENGINEER Body Mass Index 28.13 03/11/2019 11:17 AM ELECTRICAL TEST ENGINEER Plan of Treatment Health Maintenance Due Date Last Done Comments HIV SCREENING 2008 HEPATITIS C SCREENING 07/25/2011 DTAP/TDAP/TD VACCINES (1 - Tdap) 2012 HEPATITIS B VACCINE (1 of 3 - 19+ 3-dose series) 2012 HPV VACCINE (1 - 3-dose SCDM series) 2020 COVID-19 VACCINE (1 - 2023-2 5 season) 2023 DEPRESSION SCREENING 03/15/2024 INFLUENZA VACCINE (#1) 2024 ZOSTER VACCINE (1 of 2) 07/30/2043 HIB VACCINE Aged Out No longer eligi ble based on patient's age to complete this topic MENINGOCOCCAL (Group B) VACC INE SHARED DECISION-MAKING Aged Out No longer eligibl e based on patient's age to complete this topic MENINGOCOCCAL GROUPS A/C/Y/W VACCINE Aged Out No longer eligible b ased on patient's age to complete this topic PNEUMOCOCCAL VACCINE Aged Out No long er eligible based on patient's age to complete this topic Insurance [facility]
--- OUTSIDE RECORDS SUMMARY | 2024-10-03 07:17 | XMS_ITS | Data Portability ---
[facility] Organization [facility] Address [address] [place] [address] Assessment No assessment recorded. Plan of Treatment Reminders Order Date Submit Date Provider Last Modified By Organization Details Last Modified Time Details Appointments None recorde [facility] pregnan cy test, urine 2018 019 deledsmith In-Office Order, Internal Use Only DO Not Attach Compendium DO Not Attach Compendium, Do Not Delete/merge, [id number] 15:30:38 bacteri al vaginos is + vaginit is panel, vaginal 2018 019 [facility], [address], [address], [place], [address], 9 07:12:10 urinaly sis, dipstic k 2017 018 rigoberto In-Office Order, Internal Use Only DO Not Attach Compendium DO Not Attach Compendium, Do Not Delete/merge, [id number] 15:19:05 pregnan cy test, urine 2017 018 [email or web address] In-Office Order, Internal Use Only DO Not Attach Compendium DO Not Attach Compendium, Do Not Delete/merge, [id number] 8 15:19:05 bacteri al vaginos is panel, vaginal 2017 018 [facility], [address], [address], [place], [address], 8 11:16:40 jens parapsi losis DNA, genital 2017 018 [facility], [address] [facility], [address], [place], [address], 8 11:16:40 CT + NG + TV, DNA, urine/s wab 2017 018 [facility], [address] [facility], [address], [place], [address], 8 07:14:31 Referral None recorde d. Procedures None recorde d. Surgeries None recorde d. Imaging None recorde d. Medication Orders flucona zole 150 mg tablet 2018 [id number], [address], [place], [place], [id number], 9 16:25:44 medroxy progest erone 150 mg/mL intramu scular syringe [address] [id number], [address], [place], [place], [id number], 8 15:19:05 medroxy progest erone 150 mg/mL intramu scular suspens ion [address] [id number], [address], [place], [place], [phone], 8 13:07:51 Patient TargetsNo targets recorded. Patient InstructionsNo instructions recorded. Reason for Referral None Reported. Results Created Date Observation Date Name Description Value Unit Range Abnormal Flag Note LastModifiedBy Organization Detail LastModifiedTime 05/22/19 18 05/24/2017 CT + NG + TV, DNA, urine /swab chlamydia by CIARAN Negati ve negati ve Not Available [facility] ([facility]) [address], [place], [address], 05/25/2017 07:14:31 05/22/19 18 05/24/2017 CT + NG + TV, DNA, urine /swab gonococcus by CIARAN Negati ve negati ve Not Available [facility] ([facility]) [address], [place], [address], 05/25/2017 07:14:31 05/22/19 18 05/24/2017 CT + NG + TV, DNA, urine /swab trich vag by CIARAN Negati ve negati ve Not Available [facility] ([facility]) [address], [place], [address], 05/25/2017 07:14:31 08/19/19 18 08/18/2017 urina lysis , dipst ick Leukocytes Small Not Available In-Offi ce Order Internal Use Only DO Not Attach Compendium DO Not Attach Compendium, Do Not Delete/merge, [id number] 08/18/2017 14:27:22 08/19/19 18 08/18/2017 urina lysis , dipst ick Nitrite negati ve Not Available In-Office Order Internal Use Only DO Not Attach Compendium DO Not Attach Compendium, Do Not Delete/merge, [id number] 08/18/2017 14:27:22 08/19/19 18 08/18/2017 urina lysis , dipst ick Urobilinogen .2 Not Available In-Of fice Order Internal Use Only DO Not Attach Compendium DO Not Attach Compendium, Do Not Delete/merge, [id number] 08/18/2017 14:27:22 08/19/19 18 08/18/2017 urina lysis , dipst ick Protein Negati ve Not Available In-Office Order Internal Use Only DO Not Attach Compendium DO Not Attach Compendium, Do Not Delete/merge, [id number] 08/18/2017 14:27:22 08/19/19 18 08/18/2017 urina lysis , dipst ick pH 6.0 Not Available In-Office Order Internal Use Only DO Not Attach Compendium DO Not Attach Compendium, Do Not Delete/merge, [facility] 08/18/2017 14:27:22 08/19/19 18 08/18/2017 urina lysis , dipst ick Blood Negati ve Not Available In-Office Order Internal Use Only DO Not Attach Compendium DO Not Attach Compendium, Do Not Delete/merge, [facility] 08/18/2017 14:27:22 08/19/19 18 08/18/2017 urina lysis , dipst ick Specific [place] 1.015 Not Available In-Off ice Order Internal Use Only DO Not Attach Compendium DO Not Attach Compendium, Do Not Delete/merge, [facility] 08/18/2017 14:27:22 08/19/19 18 08/18/2017 urina lysis , dipst ick Ketone Negati ve Not Available In-Office Order Internal Use Only DO Not Attach Compendium DO Not Attach Compendium, Do Not Delete/merge, [facility] 08/18/2017 14:27:22 08/19/19 18 08/18/2017 urina lysis , dipst ick Bilirubin Negati ve Not Available In-Office Order Internal Use Only DO Not Attach Compendium DO Not Attach Compendium, Do Not Delete/merge, [facility] 08/18/2017 14:27:22 08/19/19 18 08/18/2017 urina lysis , dipst ick Glucose Negati ve Not Available In-Office Order Internal Use Only DO Not Attach Compendium DO Not Attach Compendium, Do Not Delete/merge, [facility] 08/18/2017 14:27:22 08/19/19 18 08/18/2017 urina lysis , dipst ick Appearance Slight ly Cloudy Not Available In-Office Order Internal Use Only DO Not Attach Compendium DO Not Attach Compendium, Do Not Delete/merge, [facility] 08/18/2017 14:27:22 08/19/19 18 08/18/2017 urina lysis , dipst ick Color Yellow Not Available In-Office Order Internal Use Only DO Not Attach Compendium DO Not Attach Compendium, Do Not Delete/merge, [facility] 08/18/2017 14:27:22 08/19/19 18 08/18/2017 pregn manuel test, urine HCG negati ve Not Available In-Office Order Internal Use Only DO Not Attach Compendium DO Not Attach Compendium, Do Not Delete/merge, [id number] 08/18/2017 14:23:06 11/10/1911/11/2018 bacte rial vagin osis + vagin itis panel , vagin al atopobium vaginae Modera te - 1 score Not Available [facility] ([facility]) [address] [place], [address], 11/12/2018 07:12:10 11/10/1911/11/2018 bacte rial vagin osis + vagin itis panel , vagin al bvab 2 Low - 0 score Not Available [facility] ([facility]) [address] [place], [address], 11/12/2018 07:12:10 11/10/1911/11/2018 bacte rial vagin osis + vagin itis panel , vagin al megasphaera 1 High - 2 score abnormal Calcu late total score by balaji irvin the 3 indiv idual bacte rial vagin osis (BV) marke r score s toget her. Total score is inter prete d as follo ws: Total score 0-1: Indic ates the absen ce of BV. Total score 2: Indet ermin ate for BV. Addit ional clini ramiro data shoul d be evalu ated to estab damaso a diagn osis. Total score 3-6: Indic ates the prese nce of BV. This test was devel oped and its perfo rmanc e deandre cteri stics deter mined by [facility]. It has not been clear ed or appro júnior by the Food and Drug Admin istra tion. The FDA has deter mined that such clear ance or appro grant is not neces anca. Not Available [facility] ([facility]) [address] [facility], [place], [address], 11/12/2018 07:12:10 11/10/1911/11/2018 bacte rial vagin osis + vagin itis panel , vagin al jens albicans, CIARAN Positi ve negati ve abnormal Not Available [facility] ([facility]) [address] [place], [address], 11/12/2018 07:12:10 11/10/19 19 11/11/2018 bacte rial vagin osis + vagin itis panel , vagin al jens glabrata, CIARAN Negati ve negati ve This test was devel oped and its perfo rmanc e deandre cteri stics deter mined by [facility]. It has not been clear ed or appro júnior by the Food and Drug Admin istra tion. The FDA has deter mined that such clear ance or appro grant is not neces anca. Not Available [facility] ([facility]) [address] [facility], [place], [address], 11/12/2018 07:12:10 11/10/19 19 11/11/2018 bacte rial vagin osis + vagin itis panel , vagin al trich vag by CIARAN Negati ve negati ve Not Available [facility] ([facility]) [address] [place], [address], 11/12/2018 07:12:10 11/10/19 19 11/12/2018 bacte rial vagin osis + vagin itis panel , vagin al chlamydia trachomatis, CIARAN Negati ve negati ve Not Available [facility] ([facility]) [address] [place], [address], 11/12/2018 07:12:10 11/10/1911/12/2018 bacte rial vagin osis + vagin itis panel , vagin al neisseria gonorrhoeae, CIARAN Negati ve negati ve Not Available [facility] ([facility]) [address] [place], [address], 11/12/2018 07:12:10 11/10/19 19 11/09/2018 olga lidia menon note please note Commen t The date and/o r time of colle ction was not indic ated on the requi sitio n as requi red by state and hi al law. The date of recei pt of the speci men was used as the colle ction date if not suppl ied. Not Available [facility] ([facility]) [address] [facility] [address], [place], [address], 11/12/2018 07:12:11 12/03/19 19 12/02/2018 pregn manuel test, urine HCG negati ve Not Available In-Office Order Internal Use Only DO Not Attach Compendium DO Not Attach Compendium, Do Not Delete/merge, [id number] 12/02/2018 15:24:28 Result Notes None recorded. Problems Name Problem SNOMED Code Status Onset Date Resolution Date Notes Provider Name and Address Organization Details Recorded Time RhD negative 021007494 Completed s/p rhogam at 20 and 32 weeks Joshua Laurent MD Attn: Diana irvin,[address] [place], [address], 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, [place], [address], [place] 7 10:30:54 Pregnanc y 70404656 Completed 201603/01/2017 Joshua Laurent MD Attn: Diana irvin,[address] [facility], [place], [address], [place] - [facility] 7 10:31:17 Vaginal discharg e 253250683 Active 2018 Irasema isaac [place] - [facility] 9 15:38:14 Problem Notes None recorded. Procedures Surgical History Date Name Laterality Status Provider Name and Address Organization Details Recorded Time 8 Depo Injection completed Irasema Nash [place] - [facility] 018 11:11:55 Imaging Results None recorded. Procedure Notes None recorded. Medical Equipment None Reported. Allergies No known drug allergies Medications Name Sig Start Date Stop Date Status Note LastModified by Organization Details LastModified Time amoxicillin 500 mg capsule active Not Available Not Available Not Available azithromyci n 250 mg tablet TAKE 2 TABLETS (500 MG) BY ORAL ROUTE ONCE DAILY FOR 1 DAY THEN 1 TABLET (250 MG) BY ORAL ROUTE ONCE DAILY FOR 4 DAYS active Not Available Not Available No t Available fluconazole 150 mg tablet Take 1 mg by oral route with meals for 1 day. active Not Available Not Available No t Available metronidazo le 500 mg tablet Take 1 tablet twice a day by oral route for 7 days. active Not Available Not Available No t Available ciprofloxac in 500 mg tablet 10/02 completed Not Available Not Available Not Available Vitamin tablet Take 1 tablet every day by oral route as directed. 2016 active Not Available Not Available Not Avai lable mupirocin 2 % topical ointment 10/02 completed Not Available Not Available Not Available methylpredn isolone 4 mg tablets in a dose pack 10/02 completed Not Available Not Available Not Available medroxyprog esterone 150 mg/mL intramuscul ar suspension ADMINISTE R 1 ML IN THE MUSCLE EVERY 3 MONTHS active Not Available Not Available No t Available amoxicillin 875 mg-potassiu m clavulanate 125 mg tablet 10/02 completed Not Available Not Available Not Available medroxyprog esterone 150 mg/mL intramuscul ar syringe Inject 1 mL every 3 months by intramusc ular route. 2017 active Not Available Not Available Not Avai lable Kelnor /35 (28) 1 mg-35 mcg tablet 10/02 completed Not Available Not Available Not Available RhoGAM Ultra-Filte red PLUS 1,500 unit (300 mcg) intramuscul ar syringe Inject 1 syringe by intramusc ular route for 1 day. 2016 active Not Available Not Available Not Avai lable Complete 14 mg iron-400 mcg tablet Take 1 tablet every day by oral route as directed for 30 days. 2016 active Not Available Not Available Not Avai lable vits 96-ferrous fumarate 27 mg iron-folic acid 800 mcg tablet active Not Available Not Available N ot Available Estarylla 0.25 mg-0.035 mg tablet Take 1 tablet every day by oral route. active Not Available Not Available No t Available Vitals Date Recorded Body height Body mass index (BMI) Body weight Provider Name and Address Organization Details Last Updated DateTime 05/21/2017 175.26 cm 28.8 kg/m2 [address] 11:06:48 Date Recorded Body height Provider Name an d Address Organization Details Last Updated DateTime 11/09/2018 175.26 cm Irasema Nash [facility] 11/09/2018 15:37:59 Date Recorded Body mass index (BMI) Body weight Systolic And Diastolic Provider Name and Address Organization Details Last Updated DateTime 11/09/2018 27.8 kg/m2 00205.37 g 122/74 mm[Hg] Jyoti Melgoza MA [facility] 11/09/2018 15:47:58 Date Recorded Body height Body mass index (BMI) Body weight Systolic And Diastolic Provider Name and Address Organization Details Last Updated DateTime 12/02/2018 175.26 cm 28.2 kg/m2 49999.74 g 122/78 mm[Hg] Dayanara Han MA [facility] 12/02/2018 15:22:09 Date Recorded Body weight Provider Name an d Address Organization Details Last Updated DateTime 03/01/2017 35105.524123 g Bry Crocker Attn: Accounting,[address] [place], [address], [facility] 03/01/2017 10:31:12 Date Recorded Body height Body mass index (BMI) Systolic And Diastolic Provider Name and Address Organization Details Last Updated DateTime 03/01/2017 175.26 cm 30.6 kg/m2 128/78 mm[Hg] Khloe Sal MA [facility] 03/01/2017 10:20:03 Social History Question Answer Notes LastModified by Organizat ion Details LastModified Time Tobacco Smoking Status Never Smoker Dayanara Han MA null, [facility] 06/12/2016 16:47:13 What Was The Date Of Your Most Recent Tobacco Screening? 03/01/2017 Information n ot available 10/06/2018 Sex: Unknown Functional Status None recorded. Mental Status None recorded. Family History Relationship Description Onset Age of this Age Resolved Age Notes LastModified by Organization Details LastModified Time Father No current problems or disability mraglin Not available 06/12 16:46:01 Mother No current problems or disability mraglin Not available 06/12 16:46:01 Paternal Grandmother Carcinoma of lower limb bones mraglin Not available 2016 16:46:49 Maternal Grandmother Leukemia mraglin Not available 06/12 16:47:06 Medical History Condition Response Coronary Artery Disease N Other N Atrial Fibrillation N High Blood Pressure N Depression N COPD N Blood Clots N Anxiety Disorder N Muscle, Joint, or Bone Problems N Acid Reflux (GERD) N Cancer N Stroke N Headaches N Kidney or Bladder Problems N Skin Problems N Asthma N Allergies N Hepatitis N High Cholesterol N Liver Disease N Thyroid Problems N GI Problems N Anemia Y Heart Attack ([place]) N Diabetes N Seizures/Epilepsy N Osteoporosis N Heart Failure N Gynecological History Statement/Question Response Menses Monthly Y Current Control Method None LMP Approximate On BCP's at Conception? N Obstetrics History GPAL:G 1 P 1 0 0 1 Type Value Full Term 1 Living 1 Total 1 Immunizations Vaccine Type Date Status Note Provider Nam e and Address Organization Details Recorded Time Tdap 11/02/2016 completed Not Available [facility] 04/01/2019 02:39:53 Past Encounters Encounter ID Performer Location Encounter Start Date Encounter Closed Date Diagnosis/Indication Diagnosis SNOMED-CT Code Diagnosis ICD10 Code Diagnosis [id number] [address] [place] [address] 06/12/2016 16:27:21 06/16/2016 08:54:25 test positive 525023745 Z32.01 [id number] RODRICK Willett ([facility]) [place] [address] 07/17/2016 14:10:20 07/17/2016 14:56:00 Gynecologic examination 67083114 Z01.419 Venereal d isease screening 412533640 Z11.3 Normal 3302083 2 Z34.91 [id number] RODRICK Willett ([facility]) [address] [place] [address] 07/31/2016 14:08:19 08/03/2016 14:43:54 Normal 05582149 Z34.91 [id number] Mary Abdi [facility] Dimitry Muniz ([facility] [address]) [address] [place] [address] 08/28/2016 14:16:25 09/10/2016 08:33:34 Normal 03531121 Z34.91 [id number] MD Dimitry Crocker ([facility]) [address] [facility] [place] [address] 10/02/2016 15:30:57 10/05/2016 09:08:07 Routine care 386972056 Z34.92 RhD negative 240721788 Z 01.83 Rhogam at 28 weeks and Low lying placenta 98258 2006 O44.42 Patient given bleeding precaution s Will obtain another sonogram to monitor placenta Maternal drug use 640226 01 P04.49 Encouraged cessation of marijuana [id number] MD Dimitry Crocker ([facility]) [address] [facility] [place] [address] 10/28/2016 16:57:36 10/29/2016 09:21:58 Routine care 002473282 Z34.92 [id number] MD Dimitry Crocker ([place] [address]) [address] [facility] [place] [address] 11/20/2016 14:04:08 11/20/2016 14:55:29 Routine care 979599534 Z34.92 [id number] MD Dimitry Crocker ([facility]) [address] [facility] [place] [address] 12/03/2016 11:54:30 12/03/2016 12:57:00 Routine care 199574338 Z34.92 [id number] MD Dimitry Crocker ([facility] Eliana) [address] [facility] [place] [address] 12/18/2016 11:38:07 12/18/2016 14:30:44 Routine care 230938254 Z34.93 [id number] MD Dimitry Crocker ([place] [address]) [address] [facility] [place] [address] 12/24/2016 11:48:51 12/24/2016 16:05:30 Routine care 923531042 Z34.93 [id number] MD Dimitry Crocker [facility] ([facility]) [address] [facility] [place] [address] 12/31/2016 10:42:04 12/31/2016 15:11:19 Routine care 861257520 Z34.93 size does not accord with dates 108548521 O36.93X0 [id number] MD Dimitry Crocker [facility] ([facility]) [address] [facility] [place] [address] 01/07/2017 11:15:29 01/07/2017 12:58:58 Routine care 588185461 Z34.93 [id number] MD Dimitry Crocker [facility] ([facility]) [address] [facility] [place] [address] 01/14/2017 09:39:37 01/18/2017 15:21:34 Routine care 268495358 Z34.93 [id number] MD Dimitry Crocker [facility] ([facility]) [address] [facility] [place] [address] 02/15/2017 10:56:47 02/15/2017 13:54:15 Contraception care management 716591437 Z30.9 [id number] MD Dimitry Crocker [facility] ([facility]) [address] [facility] [place] [address] 03/01/2017 10:11:12 03/01/2017 12:59:42 care 916358231 Z39.2 [id number] MD Dimitry Crocker [facility] ([facility]) [address] [facility] [place] [address] 05/21/2017 10:59:17 05/21/2017 14:16:26 Uses depot contraception 867275327 Z30.42 Abnormal vaginal odor 62 513156 N89.8 [id number] MD Dimitry Crocker 14 OB [address] [facility] [place] [address] 08/18/2017 13:57:17 08/26/2017 16:54:59 Contraception care 264326543 Z30.40 At [facility] risk of urinary tract infection 310194596 Z91.89 [id number] RODRICK Willett 14 OB [address] [facility] [place] [address] 11/09/2018 15:35:54 11/10/2018 08:57:43 Vaginal discharge 183847604 N89.8 Nuswab done and sent to lab. Counseled on STD prevention and condom use. Counseled on yeast and BV prevention . Will follow up pending lab results. Candidiasis of vagina 72 008910 B37.3 [id number] RODRICK Willett 14 OB [address] [facility] [place] [address] 12/02/2018 15:07:10 12/05/2018 09:17:54 Gynecologic examination 01114490 Z01.419 1. Counseled regarding prevention of STD's , condom use and prevention . 2. Counseled regarding contracept ericka options, risk factors and side effects. 3. Advised avoidance of tobacco, alcohol, and drugs . 4. Counseled regarding folic acid supplement ation, calcium needs and prevention of osteoporos is . 5. BSE reviewed and recommende d. 6. Follow up in one year or sooner if needed. Health Concerns Section Related Observation LastModified by Organization Detai ls LastModified Time None Recorded Concern Status LastModified by Organization Details LastModified Time None Recorded Advance Directives Directive None Recorded Payers Insurance Date Sequence Insurance Name Policy Number Policy Traore Covered Member ID Traore Member ID Guarantor Name 02/14/2019 1 [facility] [id number] Mitchell Contreras [id number] Isabella Contreras 06/12/2016 1 *SELF PAY* Chuckie Contreras 11/02/2016 SLIDING FEE SCHEDULE - DISCOUNT Isabella Contreras 11/25/2018 2 [place] [employer] Isabella Contreras [id number] Isabella Contreras Notes Date Note Type Note Provider Name and Address Organization Details Recorded Time 03/01/2017 text/html VisitReported bypatient.Quality:N Context:complicatio ns of : none; complications of labor: none; laceration: ; complications: none; feeding choice: breast and bottle; good support from partner/family Associated Symptoms:no abnormal bleeding; no pelvic pain; no constipation; no fecal incontinence; no dysuria; no urinary incontinence; no fever; no problems; no mastitis; laceration healing well Joshua Laurent MD Attn: Accounting[address] [place], [address], [facility] 03/01/2017 10:42:36 05/21/2017 text/html Patient presents for depo-provera injection. She states she has headaches that occur irregularly that she attributes to lack of sleep and being a new a mother. She also admits to having a malodorous discharge. Joshua Laurent MD Attn: Accounting[address] [place], [address], [facility] 05/21/2017 11:27:54 11/09/2018 text/html vaginal discharg e and itching starting 4 days ago, has tried otc with no relief. denies new meds, detergents, soaps or sexual partners. RODRICK Willett Attn: Accounting[address] [place], [address], [facility] 11/09/2018 15:50:40 12/02/2018 text/html Annual GYNReport ed bypatient.History:n o gynecologic complaints; planning in the near future; actively trying to conceive Menstrual cycle:Normal menses Urinary symptoms:No hematuria; No incontinence Vulva:No genital lesion Vagina:Normal vaginal discharge Breast:No breast pain; No breast lump; No nipple discharge Sexual complaints:No sexual complaints; No pain during intercourse; Normal libido Menopausal Symptoms:No menopausal symptoms; Normal vaginal lubrication Psychological symptoms:No depression; No anxiety; No PMDD Preventive measures:Encourage self breast examination; Encourage regular exercise; Encourage no tobacco use; Encourage regular mammograms starting age 40; Followed with Q3 year pap smear and high risk HPV typing 07/2016 normal pap; treated for bv and yeast 10/2018. pt states they are trying to conceive, taking vits. RODRICK Willett Attn: Accounting[address] [place], [address], [facility] 12/02/2018 15:30:56 OBGyn Episode Ob Episode Information Episode Created Date Number of Fetuses Patient Bloodtype Patient rh Status Prepregnancy Weight lbs Domestic Partner Domestic Partner Phone Father Name Oil Burner Status 06/13/19 17 1 A Negative 150 Avtar Heredia CLOSED Fetus Data First Name Last Name Admitted to NICU Weight (g) Sex Living Outcome Pediatric Complications Fetus ID Race Codes Race Delivery Type Avtar Heredia II false 3685.43 5 M true Full Term [address] 2106-3 White Vaginal Problems Problem Notes Problem Name Start Date End Date Resolution Snomed Code Not e Maternal drug use [id number] Ma rijuana use Low lying placenta [id number] r esolved RhD negative [id number] s/p rho jorge a at 20 and 32 weeks Rai Calculation Initial Rai Date Initial Exam Date Initial Exam Provider Initial Ultrasound Date Last Menstrual Period Date Ultra Sound Weeks Gestation 01/23/2017 06/12/2016 [email or web address] 08/22/2016 04/18/2016 17 Eighteen To Twenty Week Rai Update Ultra Sound Date Fundal Height At Umbil Quickening Date Ultra Sound Latest Weeks Gestation Final Rai Confirmed By Final Rai Confirmed Date Final Rai Date Ultra Sound Latest Days Gestation 0 [email or web address] 10/02/2016 01/24/20 17 0 Pre-toya Flowsheet Flowsheet Date 06/12/2016 Bryant Score Blood Edema Fundus Height Fundus Units Glucose Ketones Leukocytes Nitrite Labor Signs Protein Cervic Dilation Cervic Effacement Cervic Station Type Weight in lbs Pre/Post Dialysis Refused 152.145059857500 BP Diastolic BP Location Tested BP Systolic BP Type 60 104 sitting Fetus Heart Rate Present Fetus Movement Comments First , doing well. New ob labs, ultrasound order given. Will do pap and nuswab done at next visit. Flowsheet Date 07/17/2016 Bryant Score Blood Edema Fundus Height Fundus Units Glucose Ketones Leukocytes Nitrite Labor Signs Protein Cervic Dilation Cervic Effacement Cervic Station none Type Weight in lbs Pre/Post Dialysis Refused 156.980493587217 BP Diastolic BP Location Tested BP Systolic BP Type 58 110 sitting Fetus Heart Rate Present Fetus Movement Comments Doing well with no complaint s. Was unable to get labs done last time due to computer issue in the lab. States she wasn't sure if she could come in and get them or wait until next appt. Still needs ultrasound, went to [facility]. Pap and nuswab done today, new ob labs done and new order for ultrasound given to patient. Will follow up in 2 weeks to review results. Flowsheet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
--- OUTSIDE RECORDS SUMMARY | 2024-10-03 07:17 | XMS_ITS | Clinical Summary ---
Author Organization [facility] Address [address] [place] [address] Phone Care Team Providers Care Wing Commander Name Role Phone Joshua Laurent Unavailable Bhavna Holley APRN, MARTA Primary Care P rovider Allergies No known active allergies Medications Estarylla 0.25-35 MG-MCG Tablet 3 Active FLUoxetine (PROzac) 20 MG CapsuleIndication s:Anxiety and depression Take 1 Capsule by mouth daily. 90 Capsule 3 5 Active pantoprazole (PROTONIX) 40 MG Tablet Delayed Response Take 1 Tablet by mouth daily. 30 Tablet 11 5 06/03/19 26 Active metroNIDAZOLE (FLAGYL) 500 MG Tablet Take 1 Tablet by mouth 3 times daily. 30 Tablet 5 Active Amphetamine-Dextr oamphetamine (Adderall XR) 25 MG CAPSULE SR 24 HRIndications:Att ention deficit hyperactivity disorder (ADHD), combined type Take 2 Capsules by mouth every morning. 60 Capsule 5 Active Amphetamine-Dextr oamphetamine (Adderall XR) 25 MG CAPSULE SR 24 HRIndications:Att ention deficit hyperactivity disorder (ADHD), combined type Take 2 Capsules by mouth every morning. 60 Capsule 5 09/29/19 25 Discontin ued(Reord er) Active Problems Problem Noted Date Diagnosed Date Adjustment disorder with depressed mood 05/20/19 25 Sinus arrhythmia 11/08/2020 Over weight 08/05/2018 Dysmenorrhea 08/05/2018 Resolved Problems Problem Noted Date Diagnosed Date Resolved Date H/O hypoglycemia 08/05/2018 12/13/2020 Encounters Date Type Department Care Team Description 09/28/2024 MyChart RX Renewal [facility] [address] [place] [address] Bhavna Holley APRN, CNP Medication Renewal Reviewed 08/24/2024 MyChart RX Renewal [facility] [address] [place] [address] Bhavna Holley APRN, MARTA Medication Renewal Reviewed 07/23/2024 MyChart RX Renewal [facility] [address] [place] [address] Bhavna Holley APRN, MARTA Medication Renewal Reviewed from Last 3 Months Immunizations Immunization Administration Dates Next Due DTP Vaccine 09/30/1998,02/12/1995,1993 DTP-Hib 03/07/1994,1993 Hepatitis A Vaccine, Pediatric/adolescent, 2 Dose Schedule 09/01/2007,12/20/2006 Hepatitis B Vaccine 05/09/1994,1993,1993 Hepatitis B Vaccine, Pediatric/adolescent 05/09/1994,1993,1993 Hib Vaccine,unspecified Formulation 11/06/1994,0 1993 Hpv, Unspecified Formulation 11/04/2007,09/01/19 08,06/07/2007 Human Papillomavirus Vaccine (HPV), quadrivalent 03/15/2005 Influenza Vaccine, Quadrivalent, PF 01/28/2020 MMR Vaccine 09/30/1998,08/14/1994 Meningococcal B, Unspecified Formulation 12/20/2006 OPV 09/30/1998, 5,1993,10/03 TDAP Vaccine 09/17/2019,11/02/2016,03/20/2005 Varicella Vaccine Live 08/14/1994 Family History Medical History Relation Name Comments No Known Problems Brother Wally (26) No Known Problems Father (63) Stroke Maternal Grandfather Leukemia/Lymphoma Maternal Grandmother Heart Disease Mother (63) Diabetes Paternal Grandfather Cancer Paternal Grandmother ADD / ADHD Son 1 Avtar (7) Autism Son 1 Avtar (7) Relation Name Status Comments Brother Wally (26) Alive Father (63) Alive Maternal Grandfather Maternal Grandmother Mother (63) Alive Paternal Grandfather Alive Paternal Grandmother Son 1 Avtar (7) Alive Son 2 Shno (4) Alive Social History Tobacco Use Types Packs/Day Years Used Date Smoking Tobacco: Former Cigarettes 0.3 2 0 05/30/2014 - 05/30/2016 Smokeless Tobacco: Never Tobacco Cessation:Counseling Given: Not Answered Alcohol Use Standard Drinks/Week Comments Yes 1 (1 standard drink = 0.6 oz pur e alcohol) [facility] hCentiveities Answer Date Recorded In the past 12 months has [employer] electric, gas, oil, or water [employer] threatened to shut off services in your home? No 06/01/2024 Social Connection and Isolation Panel Answer Date Recorded In a typical week, how many times do you talk on the phone with family, friends, or neighbors? Twice a week 06/01/2024 How often do you get togethe r with friends or relatives? Once a week 06/01/2024 How often do you attend [facility] or christianity services? More than 4 times per year 06/01/2024 Do you belong to any clubs o r organizations such as druze groups, unions, fraternal or athletic groups, or school groups? No 06/01/2024 How often do you attend meet ings of the clubs or organizations you belong to? Never 06/01/2024 Are you , , di vorced, , never , or living with a partner? 06/01/2024 AUDIT-C Answer Date Recorded Q1: How often do you have a drink containing alc ohol? 2-4 times a month 06/01/2024 Q2: How many drinks containi ng alcohol do you have on a typical day when you are drinking? 1 or 2 06/01/2024 Q3: How often do you have si x or more drinks on one occasion? Never 06/01/2024 Overall Financial Resource Strain (CARDIA) Answe r Date Recorded How hard is it for you to pa y for the very basics like food, housing, medical care, and heating? Patient declined 06/01/2024 PHQ-2 Answer Date Recorded Total Score - Questions 1-9 0 09/2024 [facility] - Occupational Stress Questionnaire Answer Date Recorded Do you feel stress - tense, restless, nervous, or anxious, or unable to sleep at night because your mind is troubled all the time - these days? To some extent 06/01/2024 Exercise Vital Sign Answer Date Recorde d On average, how many days pe r week do you engage in moderate to strenuous exercise (like a brisk walk)? 3 days 06/01/2024 On average, how many minutes do you engage in exercise at this level? 30 min 06/01/2024 Hunger Vital Sign Answer Date Recorded Within the past 12 months, y ou worried that your food would run out before you got the money to buy more. Never true 06/02/19 Within the past 12 months, t he food you bought just didn't last and you didn't have money to get more. Never true 06/01/2024 PRAPARE - Transportation Answer Date Re corded In the past 12 months, has l ack of transportation kept you from medical appointments or from getting medications? No 05/14 In the past 12 months, has l ack of transportation kept you from meetings, work, or from getting things needed for daily living? No 06/01/2024 Housing Stability Vital Sign Answer Jaswant e Recorded In the last 12 months, was t here a time when you were not able to pay the mortgage or rent on time? Patient declined 06/02/19 25 In the past 12 months, how m any times have you moved where you were living? 0 06/01/2024 At any time in the past 12 m [facility], were you homeless or living in a residential (including now)? No 06/01/2024 Education Answer Date Recorded What is the highest level of school you have completed or the highest degree you have received? Some college, no degree 12/12/2020 Sexually Active Control Partners Comments Yes Oral Contraceptive Male Comments No Sex and Gender Information Value Date Recorded Sex Assigned at Female 01/18/2024 10:23 PM PATIENT ACCESS SPECIALIST Legal Sex Female 10:59 PM CDT Gender Identity Female 01/18/2024 10:23 PM PATIENT ACCESS SPECIALIST Sexual Orientation Straight 01/18/2024 10 :23 PM PATIENT ACCESS SPECIALIST Last Filed Vital Signs Vital Sign Reading Time Taken Comments Blood Pressure 128/80 06/02/2024 8:17 AM CDT Pulse 90 06/02/2024 8:17 AM CDT Temperature 36.5 C (97.7 F) 06/02/2024 8:17 AM CDT Respiratory Rate 18 06/02/2024 8:17 AM CDT Oxygen Saturation 100% 06/02/2024 8:17 AM CDT Inhaled Oxygen Concentration - - Weight 83 kg (183 lb) 06/02/2024 8:17 AM CDT Height 172.7 cm (5' 8) 06/02/2024 8:17 AM CDT Body Mass Index 27.83 06/02/2024 8:17 AM CDT Plan of Treatment Health Maintenance Due Date Last Done Comments HPV/Cotest 07/30/2023 Influenza Immunization (#1) 2024 01/28/2020 Cervical Cancer Screening (CCS) 01/29/2026 Pap Smear 01/29/2026 01/29/2021, 09/12/2017 DTaP/Tdap/Td Immunization (9 - Td or Tdap) 09/16/2029 09/17/2019, 11/02/2016, 03/20/2005, Additional history exists Td Immunization Every 10 Years (Adults With 1 Tdap) 09/16/2029 09/17/2019, 11/02/2016, 03/20/2005 Respiratory Syncytial Virus (RSV) Immunization (Adult) (1 - 1-dose 75+ series) 2068 Hepatitis B Immunization Completed 995, 05/09/1994, 1993, Additional history exists Human Papillomavirus (HPV) Immunization Completed 11/04/2007, 09/01/2007, 06/07/2007, Additional history exists Hepatitis C Virus (HCV) Screening Discontinued 06/02/2024 Meningococcal Immunization (ACWY) Aged Out No longer eligible based on patient's age to complete this topic Pneumococcal Immunization Combined Aged Out No longer eligible based on patient's age to complete this topic Rotavirus Immunization Aged Out No lo nger eligible based on patient's age to complete this topic SARS-COV-2 Immunization Discontinued Goals Goal Patient Goal Type Associated Problems Recent Progress Patient-Stated? Author Behavioral Health Behavioral Health On track(2022 3:00 PM CDT) Yes Jay Rose PSYD Note: Isabella will participate fully in a psychological assessment, to determine whether she meets the criteria for ADHD or another condition. Depression Depression Yes Norma Rosario, [facility] Note: Hope to be more confident, have patience, let go of my marriage if needed Goal/Objective: Increase confidence. Anticipated Time Frame for Goal Completion: 6 months Goal Reviewed with: patient Readiness to change: Ready to change Department associated with goal: [facility] Steps to achieve goal: will attend counseling/psychotherapy sessions at least once monthly, at least 6 sessions, utilizing individual and/or group sessions to express thoughts and feelings. to identify, verbalize and process at least three contributing factors/triggers to anxiety and depression. to identify and verbalize at least three actions/skills to prevent and/or cope with anxiety and depression. to put into action, at least one time weekly, for one month, an action/skill to prevent and or cope with anxiety and depression. Procedures Procedure Name Priority Date/Time Associated Diagnosis Comments HEPATITIS C ANTIBODY Routine 06/02/2024 9:02 AM CDT Screen for sexually transmitted diseases At risk for sexually transmitted infection due to unprotected sex PATHOLOGY CYTOLOGY SMOKE JUMPER 01/29/2021 12:00 AM PATIENT ACCESS SPECIALIST from Last 3 Months or Most Recently Relevant to Health Maintenance Results * HEPATITIS C ANTIBODY (06/02/2024 9:02 AM CDT) hepatitis C antibody 0.19 <1 S/CO 06/02/2024 9:39 PM CDT [facility] Comment: Signal/Cutoff ratio < 0.79 is Nondetected Signal/Cutoff ratio 0.80-0.99 is Grayzone Signal/Cutoff ratio > 0.99 is Detected Supplemental assays are recommended if signal/cutoff ratio is >/=1.00. Signal/cutoff ratio result >/= 5.00 is 97% predictive of positivity for recombinant immunoblot assay (RIBA) and will be reported to the [place] Department of Public Health as required. Blood Venipuncture / Unknown 06/02/2024 9:02 AM CDT 06/02/2024 9:02 AM CDT us Luisa Cortez SPECIALIZED DEVELOPER, ANESTHETIST CHEMISTRY ORDERABLES Final Result [facility] [address] [place] [address], * PATHOLOGY CYTOLOGY SMOKE JUMPER (01/29/2021 12:00 AM PATIENT ACCESS SPECIALIST) 01/29/2021 us Not On File Provider PATHOLOGY/CYTOLOGY ORDERABL ES Final Result SCAN from Last 3 Months or Most Recently Relevant to Health Maintenance Insurance MEDICAID ORAL Care Teams Wing Commander Relationship Specialty Start Date End Date Bhavna Holley APRN, ANESTHETIST [address] [place] [address] PCP - General Advanced Practice Nurse 08/21/20 Joshua Laurent Obstetrics & Gynecology 08/05/18
--- OUTSIDE RECORDS SUMMARY | 2024-10-03 07:17 | XMS_ITS | Data Portability ---
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 Patient will come back in a year unless there are new symptoms. Suggest Calcium with Vitamin D if not eating in diet. Patient advised to get annual flu shot. Recommend yearly physicals and preform monthly breast exams. Genetic testing is available for patients with family history of cancer. Engage in safe sexual practices, use condoms. Encouraged to have daily exercise. Avoid tobacco and illicit drugs, moderation of alcohol. If BMI greater than 25 dietary consult advised. If you have any questions please call or email. [email or web address] Not available 01/29/2021 10:01:42 06/03/2021 06/03/2021 likely BTB due to stress, but will schedule US since this is a recurrent issue continue OCP, skip placebo week this month. support given no US follow up needed if US normal. [email or web address] Not available 06/03/2021 17:22:54 01/28/2023 01/28/2023 Annual gynecological exam performed. Patient will come back in a year unless there are new symptoms. [email or web address] Not available 01/28/2023 18:48:06 Plan of Treatment Reminders Order Date Submit Date Provider Last Modified By Organization Details Last Modified Time Details Appointments None recorded. Lab test, urine 2024 025 jess [address], [address], [place], [address], 5 15:29:21 Referral None recorded. Procedures None recorded. Surgeries None recorded. Imaging US, pelvis 2021 022 [address], [address], [place], [address], 2 17:04:00 US, transvagina l 2021 [address]22 [address], [address], [place], [address], 2 17:04:00 Medication Orders Estarylla 0.25 mg-0.035 mg tablet 2024 025 [facility] #[id number], [address], [place], [place], [id number], 5 14:40:58 Estarylla 0.25 mg-0.035 mg tablet 2022 023 [facility] #[id number], [address], [place], [place], [id number], 3 18:57:13 Estarylla 0.25 mg-0.035 mg tablet 2020 021 [facility] #[id number], [address], [place], [place], [id number], 1 10:02:17 Patient TargetsNo targets recorded. Patient InstructionsNo instructions recorded. Reason for Referral None Reported. Results Created Date Observation Date Name Description Value Unit Range Abnormal Flag Note LastModifiedBy Organization Detail LastModifiedTime 01/30/20 21 01/29/2021 IMAGE GUIDE D PAP, REFLE X HPV IF ASCUS ONLY image guided Pap, reflex HPV ASCUS only SEE RESULT S BELOW CASE REPOR T: Cytol ogy Gynec ologi ramiro Repor t Case: [id number] Autho jarvis irvin Provi magalie: Preston lees, Jeri Gutierrez, R[employer] T[employer]ER Colle cted: 01/29 1432 Order ing Locat ion: [place] Path[facility] logfelice Recei júnior: 01/30 0209 First Scree n: Strut z, Willi am, CT Rescr een: Maude gracia, Arturo figueroa, CT Speci men: Scree fani Pap - Image d, Cervi x STATE MENT OF ADEQU ACY: Satis facto ry for evalu ation Trans forma tion zone compo nent prese nt FINAL DIAGN OSIS: Negat ericka for Intra epith elial Lesio n or Jaquelin winter (NIL) . Elect donovaneduard griffith errol d by Maude gracia, Arturo figueroa, CT on 02/05 at 6:51 PM ----- ----- ----- ----- ----- ----- ----- ----- ----- ----- ----- ----- ----- ----- ----- ----- ----- ---- COMME NT: Note: This speci men was revie wed by a Cytot echno logis t and/o r Patho logis t (as indic ated in this repor t) after evalu ation using the Thinp rep Imagi ng Syste m. CLINI RAMIRO INFOR MATIO N: Menst rual Statu s: LMP (if appli cable ): Clini ramiro Histo ry/Pr eviou s Pap: Type of Neopl ezekiel (if appli cable ): Signi fican t Clini ramiro Findi ngs: Other Histo ry: Hormo shira (if appli cable ): PAP EDUCA ROSAMARIA L NOTE: The Pap Test is a scree fani test with an inher ent false negat ericka rate. Liqui d-bas e sampl ing may decre ase, but will not elimi adolfo, false negat ericka resul ts. A negat ericka resul t does not precl ude the prese nce and/o r devel opmen t of disea se, since the prese nce of abnor mal cells in the sampl e depen ds on the locat ion of the lesio n and sampl ing techn ique. Alida nued regul ar scree fani is the best metho d of cance r preve ntion . If repor marge cytol ogic findi ng do not corre late with physi ramiro and/o r histo rical findi ngs, furth er inves tigat ion is recom elaine d, as clini parth warra nted. Not Available [facility] (Lab) [address], [place], [address], 02/05/2021 19:53:33 04/25/19 25 04/25/2024 pregn manuel test, urine HCG negati ve Not Available [place] [address], [place], [address], 04/25/2024 15:29:14 06/12/19 22 06/11/2021 US, pelvi s No observ ation record ed. [email or web address] [facility] [address], [place], [address], 01/28/2023 19:05:18 06/12/19 22 06/11/2021 US, trans vagin al No observ ation record ed. [email or web address] [facility] [address], [place], [address], 01/28/2023 19:05:18 06/12/19 22 06/11/2021 US, pelvi s No observ ation record ed. [email or web address] [address], [place], [address], 01/28/2023 19:05:18 06/12/19 22 06/11/2021 US, pelvi s No observ ation record ed. [email or web address] [address], [place], [address], 01/28/2023 19:05:18 06/12/19 22 06/11/2021 US, kyler s No observ ation record ed. [email or web address] [address], [place], [address], 01/28/2023 19:05:18 06/12/19 22 06/11/2021 , kyler s No observ ation record ed. [email or web address] [address], [place], [address], 01/28/2023 19:05:18 Result Notes None recorded. Problems Name Problem SNOMED Code Status Onset Date Resolution Date Notes Provider Name and Address Organization Details Recorded Time Past pregnanc y history of gestatio nal hyperten gisele 543290495 Completed 2016 Candice isaac [facility] 12:49:29 Pregnanc y detectio n examinat ion Completed 201804/17/2020 Encounte r for pregnanc y test, result positive ;Recorde d Elsewher e: No [facility] E[facility] Welfare Project Manager lane: N Practi ce ID: 0001 Tone lable Time: 02:00:00 PM Karen Aviles MD [address], [place], [address], [facility] 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 1 09:41:57 Antenata l screenin g Completed 201904/17/2020 Encounte r for antenata l screenin g for nuchal transluc ency;Rec orded Elsewher e: No [facility] S ource: EHR Welfare Project Manager lane: Kelsey Nielsen ce ID: 0001 Tone lable Time: 05:00:00 PM Karen Aviles MD [address], [place], [address], [facility] 1 09:42:02 Rubella screenin g status 223753496 Completed 201904/17/2020 Encounte r for antenata l screenin g, unspecif ied;Oskar rded Elsewher e: No [facility]: [facility] Welfare Project Manager lane: Kelsey Nielsen ce ID: 0001 Tone lable Time: 01:15:00 PM Karen Aviles MD [address], [place], [address], [facility] 1 09:41:55 Pregnanc y, childbir th and puerperi um finding Completed 201904/17/2020 Encntr for suprvsn of normal first preg, second trimeste r;Record ed Elsewher e: No [facility]: [facility] Welfare Project Manager lane: Kelsey Nielsen ce ID: 0001 Tone lable Time: 11:45:00 AM Karen Aviles MD [address], [place], [address], [facility] 1 09:41:52 Antenata l screenin g for malforma tion Completed 201904/17/2020 Encounte r for antenata l screenin g for malforma tions;Re corded Elsewher e: No [facility] E[facility] Welfare Project Manager lane: Kelsey Nielsen ce ID: 0001 Tone lable Time: 10:30:00 AM Karen Aviles MD [address], [place], [address], [facility] 1 09:42:00 Normal pregnanc y in multigra vika [id number] 82857 Completed 201904/17/2020 Encounte r for suprvsn of normal pregnanc y, second trimeste r;Practi ce ID: 0001 Karen Aviles MD [address], [place], [address], [facility] 09:41:49 Pregnanc y 48253115 Completed 201904/01/2020 Candice Jimenez null, [facility] 12:49:35 Body mass index 30+ - obesity 354974304 Completed 202001/29/2021 Clraita Powers null, [facility] 09:45:22 Problem Notes None recorded. Procedures Surgical History Date Name Laterality Status Provider Name and Address Organization Details Recorded Time 3 Date of Last Pap Smear completed Maureen Brownney [facility] 04/25/2024 14:27:33 osteotomy completed Davina Sharma [facility] 06/22/2019 12:42:39 Imaging Results None recorded. Procedure Notes None recorded. Medical Equipment None Reported. Allergies No known drug allergies Medications Name Sig Start Date Stop Date Status Note LastModified by Organization Details LastModified Time fluoxetin e 40 mg capsule 01/28 completed Not Available Not Available Not Available amoxicill in 500 mg capsule 01/28 completed Not Available Not Available Not Available dicloxaci llin 500 mg capsule Take 1 capsule every 6 hours by oral route for 10 days. 10/16 completed Not Available Not Available Not Available doxycycli ne hyclate 100 mg capsule 04/25 completed Not Available Not Available Not Available trazodone 50 mg tablet 04/25 completed Not Available Not Available Not Available fluconazo le 150 mg tablet 06/21 completed Not Available Not Available Not Available valacyclo vir 1 gram tablet 04/25 completed Not Available Not Available Not Available hydrocodo ne 5 mg-acetam inophen 325 mg tablet 12/31 completed Not Available Not Available Not Available penicilli n V potassium 500 mg tablet 04/17 completed Not Available Not Available Not Available metronida zole 500 mg tablet 06/21 completed Not Available Not Available Not Available Tamiflu 75 mg capsule take 1 capsule by oral route every day for 10 days 04/17 completed Prescrib ed Elsewher e: No Locat ion: [facility] odify By: [email or web address] Sanchezte r DateTime : 05/09/19 01:15:09 PM Not Available Not Available Not Available amoxicill in 500 mg tablet 06/21 completed Not Available Not Available Not Available amoxicill in 875 mg tablet 12/31 completed Not Available Not Available Not Available pantopraz ole 40 mg tablet,de layed release 04/25 completed Not Available Not Available Not Available fluoxetin e 20 mg capsule active Not Available Not Available Not Available dextroamp hetamine- amphetami ne ER 25 mg 24hr capsule,e xtend release TAKE 2 CAPSULES BY MOUTH IN THE MORNING active Not Available Not Available No t Available bupropion HCl XL 150 mg 24 hr tablet, extended release 01/29 completed Not Available Not Available Not Available 01/09 completed Not Available Not Available Not Available Viorele (28) 0.15 mg-0.02 mg (21)/0.01 mg (5) tablet Take 1 tablet every day by oral route. 06/04 completed Not Available Not Available Not Available Estarylla 0.25 mg-0.035 mg tablet Take 1 tablet every day by oral route. active Not Available Not Available No t Available 28 mg-800 mcg tablet 04/17 completed Prescrib ed Elsewher e: Yes Loca tion: [facility] odify By: [email or web address] Encount er DateTime : 03/24/19 01:15:00 PM Not Available Not Available Not Available Slynd 4 mg (28) tablet TAKE 1 TABLET BY MOUTH EVERY DAY 04/17 completed Not Available Not Available Not Available Fluzone Quad (PF) 60 mcg (15 mcg x 4)/0.5 mL IM syringe PHARMACY ADMINIST EREStevie 04/17 completed Not Available Not Available Not Available Vitals Date Recorded Body height Body mass index (BMI) Body weight Systolic And Diastolic Provider Name and Address Organization Details Last Updated DateTime 04/25/2024 172.72 cm 29 kg/m2 83523.71 g 130/70 mm[Hg] Maureen Le [facility] 04/25/2024 14:26:21 Date Recorded Body height Body mass index (BMI) Body weight Systolic And Diastolic Provider Name and Address Organization Details Last Updated DateTime 06/03/2021 172.72 cm 33.9 kg/m2 625375.1 g 125/82 mm[Hg] Krystal Ramírez [facility] 06/03/2021 16:50:10 Date Recorded Body height Body mass index (BMI) Body weight Systolic And Diastolic Provider Name and Address Organization Details Last Updated DateTime 01/28/2023 172.72 cm 31.3 kg/m2 48128.03 g 124/80 mm[Hg] Isabella Tom [facility] 01/28/2023 18:50:24 Date Recorded Body height Body mass index (BMI) Body weight Systolic And Diastolic Provider Name and Address Organization Details Last Updated DateTime 01/29/2021 172.72 cm 32.5 kg/m2 80582.77 g 114/81 mm[Hg] Clarita Powers [facility] 01/29/2021 09:44:22 Social History Question Answer Notes LastModified by Organizat ion Details LastModified Time Tobacco Smoking Status Never Smoker Clarita Powers [facility], [facility] 01/29/2021 09:45:07 Do You Have An Advance Directive? No [email or web address] Information n ot available 01/29/2021 How Many Years Have You Consumed Alcohol? 6 [email or web address] Information not available 01/29/2021 Are You Blind Or Do You Have Difficulty Seeing? No [email or web address] Information n ot available 01/29/2021 What Is Your Level Of Caffeine Consumption? Heavy [email or web address] Information not available 01/29/2021 How Much Tobacco Do You Chew? None [email or web address] Information not available 01/29/2021 In The 14 Days Before Symptom Onset, Have You Had Close Contact With A Laboratory-confirm ed COVID-19 While That Case Was Ill? No [email or web address] Information n ot available 01/29/2021 In The 14 Days Before Symptom Onset, Have You Had Close Contact With A Person Who Is Under Investigation For COVID-19 While That Person Was Ill? No [email or web address] Information not available 01/29/2021 Have You Been To An Area Known To Be High Risk For COVID-19? No [email or web address] Information not available 01/29/2021 Are You Deaf Or Do You Have Serious Difficulty Hearing? No [email or web address] Information not available 01/29/2021 What Type Of Diet Are You Following? REGULAR [email or web address] Information n ot available 01/29/2021 What Is The Highest Grade Or Level Of School You Have Completed Or The Highest Degree You Have Received? HB56811-3 [email or web address] Information not available 01/29/2021 Are There Any Guns Present In Your Home? No [email or web address] Information not available 01/29/2021 What Was The Date Of Your Most Recent Tobacco Screening? 01/29/2021 [email or web address] Information not available 01/29/2021 How Many Children Do You Have? 2 [email or web address] Information not available 01/29/2021 Do You Use Protection During Sex? No Information not available 01/29/2021 Do You Use Your Seat Belt Or Car Seat Routinely? Yes [email or web address] Information not available 01/29/2021 Do You Have Smoke And Carbon Monoxide Detectors In Your Home? Yes [email or web address] Information not available 01/29/2021 How Much Tobacco Do You Smoke? No [email or web address] Information not available 08/25/2019 Do You Use Sunscreen Routinely? No [email or web address] Information not available 01/29/2021 Have You Used IV Drugs? No [email or web address] Information not available 01/29/2021 Sex: Unknown Functional Status Question Answer Note LastModified by Organizat ion Details LastModified Time Do you use any illicit or recreational drugs? No [email or web address] Information not available 01/29/2021 What is your level of alcohol consumption? Occasional Information not available 01/29/2021 Do you or have you ever used smokeless tobacco? Never used smokeless tobacco [email or web address] Information not available 01/29/2021 Are you able to walk? 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 Never used electronic cigarettes [email or web address] Information not available 01/29/2021 What is your exercise level? Occasional [email or web address] Information not available 06/22/2019 Mental Status Question Answer Note LastModified by Organization D etails LastModified Time Do you feel stressed (tense, restless, nervous, or anxious, or unable to sleep at night)? [id number] [email or web address] Information not available 01/29/2021 Family History Relationship Description Onset Age of this Age Resolved Age Notes LastModified by Organization Details LastModified Time Paternal Grandfather Diabetes mellitus [email or web address] Not available 2019 12:41:31 Mother Anemia [email or web address] Not available 12:41:40 Mother Pulmonary embolism [email or web address] Not available 2021 10:59:26 Maternal Grandmother Polyp of colon 40 [email or web address] Not available 2021 10:59:26 Paternal Grandmother Polyp of colon 80 [email or web address] Not available 2021 10:59:26 Unspecified Relation Leukemia [email or web address] Not available 2021 10:59:26 Unspecified Relation Malignant neoplasm of bone [email or web address] Not available 2021 10:59:26 Notes:Mother: pulmonary embo lism, Anemia Paternal grandfather: Diabetes mellitus Medical History Condition Response Allergies (Food, seasonal, environmental ) N Other N Breast Cancer N Drug/Latex Allergies/Reactions N Blood Transfusion N Dermatologic Disorders N Lung Disease N Defects or Inherited Disease N Breast Problem N Gestational Diabetes N Hematologic disorders N Anesthesia Complications N History of STI Y Deep Vein Thrombosis N Polycystic ovary syndrome N Anxiety Disorder N Autoimmune disease N Arthritis N Infertility N Polyps N Acid Reflux (GERD) N History of abnormal pap N Cancer N Stroke N Varicosities N Neurologic/Epilepsy N Endometriosis N High Cholesterol N Headaches N Fibromyalgia N Kidney Disease N Heart Problems N Kidney or Bladder Problems N Thyroid Problems N GI Problems N Eating Disorder N Anemia N Art (IVF or FET) N Psychiatric Illness N Ovarian Cancer N Diabetes N Pulmonary (TB, Asthma) N Hepatitis/Liver Disease N Eczema N Urinary Tract Infection N Abuse/Domestic Violence N Asthma N Trauma/Violence N Depression/ depression N Heart Disease N Pre-Eclampsia N Hypertension N Osteoporosis N Thrombophilias N Gynecological History Statement/Question Response Abnormal Pap N Flow Moderate Date of LMP 04/10/2024 N On BCP's at Conception? N STIs/STDs Y Was last menstrual period normal Y HPV Vaccine Y Duration of Flow (days) 5 Current Control Method BCPs Age at First Child 11 Are cycles usually normal Y Frequency of Cycle (Q days) 5 Sexually Active? Y BCPs Menses Monthly Y Age of first menstrual cycle 9 Date of Last Pap Smear 01/29/2023 Sexual Problems? N LMP Approximate Desired Control Method BCPs N Obstetrics History GPAL:G 2 P 2 0 0 2 Type Value Full Term 2 Living 2 Total 2 Past Encounters Encounter ID Performer Location Encounter Start Date Encounter Closed Date Diagnosis/Indication Diagnosis SNOMED-CT Code Diagnosis ICD10 Code Diagnosis Note [id number] Priscilla Medeiros CNM [facility] [address] [address] 06/22/2019 12:28:32 06/22/2019 18:17:07 [id number] Priscilla Medeiros CNM [facility] [address],[place] [address] 07/06/2019 12:01:29 07/06/2019 12:33:43 Routine care 886818320 Z34.[id number] [facility] [facility] [address] [place] [address] 07/20/2019 11:57:22 07/21/2019 14:26:30 Routine care 356264500 Z34.[id number] [facility] [facility] [address],[place] [address] 08/03/2019 11:37:36 08/03/2019 12:16:27 Routine care 960472250 Z34.93 - induced hypertension 10837967 O13.9 [id number] Priscilla Medeiros [facility] [address],[place] [address] 08/16/2019 11:26:24 08/16/2019 13:15:26 Routine care 494549609 Z34.93 [id number] Jeri Cross [facility] [address],[place] [address] 08/25/2019 10:25:53 08/25/2019 12:09:53 Routine care 261914241 Z34.93 [id number] Jeri Cross [facility] [address],[place] [address] 09/01/2019 16:03:36 09/06/2019 10:47:26 Routine care 883507011 Z34.93 [id number] Priscilla Medeiros [facility] [address],[place] [address] 09/06/2019 10:49:19 09/06/2019 11:55:48 Routine care 141955627 Z34.93 [id number] Priscilla Medeiros [facility] [address],[place] [address] 09/11/2019 10:42:04 09/11/2019 14:28:42 Routine care 686658233 Z34.93 [id number] Priscilla Medeiros CNM [address] [address] 10/03/2019 12:34:40 10/03/2019 13:40:47 Mastitis associated with 545644306 O91.22 Pt was not able to come in yesterday so antibiotic s were sent out and she started yesterday evening. She is starting to feel a little better. Encouraged pumping/fe eding to empty the breast every 2-3 hours, use of warm compress, and continue antibiotic s. If return of fever, lump, or worsening of symptoms she will need to be evaluated in the ER. Pt verbalized understand ing. Also stressed importance of antibiotic s every 6 hours for the full 10 days. [id number] [place] [address] 10/17/2019 12:26:58 10/17/2019 15:23:20 state 49998303 Z39.2 Continue to watch for signs/symp toms of post depression . Return one year from last pap smear for a well woman exam. Patient received above instructio ns, and questions have been answered. If you have any questions please call or respond to this email. Patient was made aware of the patient portal and may obtain a paper copy of today's plan if desiredp [id number] Priscilla Medeiros CNM [facility] [address] [address] 01/10/2020 09:36:10 01/10/2020 13:36:56 test negative 591092085 Z32.02 Gynecologi c examination 03318868 Z01.419 Take Calcium with Vitamin D 1200mg daily if not receiving in daily diet. It is strongly advised to have an annual flu shot and up can obtain at most pharmacies . If you have not had a TDap shot in the last 10 years you should obtain one as well. Discussed with patient & provided with informatio n regarding Gardisil vaccine to prevent the 4 strains for HPV that cause cervical cancer if under age 26. Encourage safe sexual practices, to use condoms and limit partners if not already in a monogamous relationsh ip. Do monthly self breast exams. Have mammogram yearly or every other year depending on family history. BRCA testing is now available for patients with strong genetic history of female cancer. If interested contact the office. Engage in daily exercise of low impact aerobic exercise 45-60 minutes 4-5 times weekly. Avoid tobacco and illicit drugs as well as using moderation with alcohol intake less than 1-2 8 oz beverages daily. This lifestyle behavior pattern will lead to less health conditions and longer life span. If BMI greater than 25 weight watchers or dietary consult advised. Patient received above instructio ns, and questions have been answered. If you have any questions please call or respond to this email. Patient was made aware of the patient portal and may obtain a paper copy of today's plan if desired. [facility] care management [id number] Z30.9 Discussed all control options in great detail. Pt would like to switch to Estarylla since she has stopped breastfeed ing. She is aware of the risks and benefits. She does not have any medical condition that is contraindi cated with the use of estrogen containing control. Pt will start her pills after completion of current pack of slynd. She is aware it is not effective for control the first month. She is also aware of the importance of taking at the same time every day. Encouraged use of condoms as the pill does not protect against STD's. Will return in 3 months for med check. Consent was read and signed. Pt verbalized understand ing. Vaginitis 70275223 N76.0 Discussed use of mild soap like dove or ivory, cotton underwear w/out dye, hypoallerg enic detergent, wipe from front to back, avoid tub baths, keep perineum clean and dry, d/c use of baby wipes. Encouraged daily intake of yogurt or womens health probiotic. Internal and external affirm collected. [id number] Karen Aviles MD [facility] [address] [address] 04/17/2020 09:28:13 04/17/2020 13:03:57 Break-through bleeding [id number] N92.1 Surveillan ce of oral contraception [id number] Z30.41 [id number] Jeri Cross, [facility] [address] [place] [address] 01/29/2021 09:31:57 01/29/2021 10:12:42 Gynecologic examination [id number] Z01.419 [id number] Karen Aviles MD [facility] [address] [place] [address] 06/03/2021 16:43:24 06/03/2021 17:57:16 Break-through bleeding [id number] N92.1 [id number] Brian Higginbotham MD [facility] [address] [place] [address] 06/11/2021 10:58:42 06/11/2021 15:06:49 Irregular periods [id number] N92.6 [id number] Sarah Chavarria [facility] [address] [place] [address] 01/28/2023 18:45:26 01/28/2023 19:06:58 Gynecologic examination [id number] Z01.419 Take Calcium with Vitamin D 1200mg daily if not receiving in daily diet. It is strongly advised to have an annual flu shot and up can obtain at most pharmacies . If you have not had a TDap shot in the last 10 years you should obtain one as well. Discussed with patient & provided with informatio n regarding Gardisil vaccine to prevent the 4 strains for HPV that cause cervical cancer if under age 26. Encourage safe sexual practices, to use condoms and limit partners if not already in a monogamous relationsh ip. Do monthly self breast exams. Have mammogram yearly or every other year depending on family history. BRCA testing is now available for patients with strong genetic history of female cancer. If interested contact the office. Engage in daily exercise of low impact aerobic exercise 45-60 minutes 4-5 times weekly. Avoid tobacco and illicit drugs as well as using moderation with alcohol intake less than 1-2 8 oz beverages daily. This lifestyle behavior pattern will lead to less health conditions and longer life span. If BMI greater than 25 weight watchers or dietary consult advised. Patient received above instructio ns, and questions have been answered. If you have any questions please call or respond to this email. Patient was made aware of the patient portal and may obtain a paper copy of today's plan if desired.Dani antonio sentSTD Screen declinedGe netic Screen discussedC olon Screen naDexa Screen naRoutine Labs PCP Contracept ion care management [id number] Z30.9 Happy with OCPRF sent x 1yr [id number] WILFRID Mulligan [facility] [address] [address] 04/25/2024 14:16:25 04/25/2024 16:06:46 Irregular periods [id number] N92.6 UPT (-)discuss ed recent irregular periods in relation to OCP/missin g pillsshe likes this form of BC and desires to continuere fills sent, r/b/a revieweden couraged taking at same time daily/not missing pills for period regulation questions answered, precaution s discussedi f irregulari ties continue she will RTC Time spent in visit is a total of 20 mins with at least 50% of visit consisting of counseling and review of plan of care. Contracept ion care management [id number] Z30.9 Health Concerns Section Related Observation LastModified by Organization Detai ls LastModified Time None Recorded Concern Status LastModified by Organization Details LastModified Time None Recorded Advance Directives Directive N: Payers Insurance Date Sequence Insurance Name Policy Number Policy Traore Covered Member ID Traore Member ID Guarantor Name 09/19/2019 2 [facility] [id number] Mitchell Contreras [id number] Isabella [place] 09/26/2024 1 [place] [id number] Isabella Contreras [id number] Isabella [place] 06/09/2024 PAYMENT PLAN Isabella Mitesh 10/20/2022 1 [employer] (PPO) [id number] Gigi Mitesh [id number] Isabella [place] 09/26/2024 1 [facility] (MEDICAID HMO) [id number] [facility] [place] [id number] [facility] Mitesh Notes Date Note Type Note Provider Name and Address Organization Details Recorded Time 01/29/2021 text/html Annual GYNReport ed bypatient.Menstrual cycle:Normal menses Urinary symptoms:No hematuria; No incontinence Vulva:No genital lesion Vagina:Normal vaginal discharge Breast:No breast pain; No breast lump; No nipple discharge Current Contraception:Satisf ied with current contraception Sexual complaints:No sexual complaints; No pain during intercourse; Normal libido Menopausal Symptoms:No menopausal symptoms; Normal vaginal lubrication Psychological symptoms:No anxiety; No PMDD;Depression; being tx with pcp, feels better Preventive measures:Encourage self breast examination; Encourage regular exercise; Encourage no tobacco useNotes:doing well, kids doing well, pcp refills fluoextine, needs rf on bcm reviewed pap rec and pt would like to proceed with pap Jeri Cross, MARY KATE [address], [place], [address], [facility] 01/29/2021 10:02:52 06/03/2021 text/html Isabella is a 25y o here for irregular bleeding on OCP. Had this problem a year ago for a couple mos where she bled for two weeks starting in middle of pack, it happened again this month. Cramping associated with the bleeding. Had huge stress this month as her dad left her mom for a younger woman. No missed or late pills. Karen Aviles MD [address], [place], [address], [facility] 06/03/2021 17:23:17 01/28/2023 text/html Annual GYNReport ed bypatient.History:no gynecologic complaints Menstrual cycle:Normal menses Urinary symptoms:No hematuria; No incontinence Vulva:No genital lesion Vagina:Normal vaginal discharge Breast:No breast pain; No breast lump; No nipple discharge Current Contraception:Satisf ied with current contraception; Oral contraceptives Sexual complaints:No sexual complaints; No pain during intercourse; Normal libido Menopausal Symptoms:No menopausal symptoms; Normal vaginal lubrication Psychological symptoms:No depression; No anxiety; No PMDD Preventive measures:Encourage self breast examination; Encourage regular exercise; Encourage no tobacco use; Encourage regular mammograms starting age 40; Followed with yearly pap smears WILFRID Villegas-BC [address], [place], [address], [facility] 01/28/2023 19:06:53 04/25/2024 text/html 28yo [id number] ents for evaluation of recent irregular periodsymptoms started last month, had 2 periods last monthon OCP for BC , did miss pills during this time when she ran out of refillshas been under increased stress over the past monthno current vaginal bleeding neg n/v/fneg flu-like symptomsneg discharge, odors, itching WILFRID Mulilgan [address], [place], [address], [facility] 04/25/2024 15:29:49 OBGyn Episode Ob Episode Information Episode Created Date Number of Fetuses Patient Bloodtype Patient rh Status Prepregnancy Weight lbs Domestic Partner Domestic Partner Phone Father Name Drum Saw Operator Status 06/22/19 20 1 CLOSED Fetus Data First Name Last Name Admitted to NICU Weight (g) Sex Living Outcome Pediatric Complications Fetus ID Race Codes Race Delivery Type 3685.43 5 M Full Term 197 Vaginal Delivery Rai Calculation Initial Rai Date Initial Exam Date Initial Exam Provider Initial Ultrasound Date Last Menstrual Period Date Ultra Sound Weeks Gestation 0 Eighteen To Twenty Week Rai Update Ultra Sound Date Fundal Height At Umbil Quickening Date Ultra Sound Latest Weeks Gestation Final Rai Confirmed By Final Rai Confirmed Date Final Rai Date Ultra Sound Latest Days Gestation 0 0 Menstrual History Last Menstrual Date Menses Monthly On Bcp Conception Prior Menses Frequency Hcg Plus Date Menarche Onset Age Delivery Information Delivery Date Delivery Type Labor Anesthesia Weeks Gestation Incision Type Labor Labor Length Hrs Delivered By Post Complications Tubal Sterilization Discharge Date Comments 7 39.2 false GHTN Discharge Information Feeding Method Contraceptive Method Maternal HG B and HCT Levels Ob Episode Information Episode Created Date Number of Fetuses Patient Bloodtype Patient rh Status Prepregnancy Weight lbs Domestic Partner Domestic Partner Phone Father Name Drum Saw Operator Status 06/22/19 20 1 A Negative 197 CLOSED Fetus Data First Name Last Name Admitted to NICU Weight (g) Sex Living Outcome Pediatric Complications Fetus ID Race Codes Race Delivery Type 3628.73 6 M true Full Term 198 Vaginal Delivery Problems Problem Notes Problem Name Start Date End Date Resolution Snomed Code Not e Past history of ge stational hypertension [id number] 2017 Rai Calculation Initial Rai Date Initial Exam Date Initial Exam Provider Initial Ultrasound Date Last Menstrual Period Date Ultra Sound Weeks Gestation 09/23/2019 06/22/2019 03/03/2019 12/15/2018 10 Eighteen To Twenty Week Rai Update Ultra Sound Date Fundal Height At Umbil Quickening Date Ultra Sound Latest Weeks Gestation Final Rai Confirmed By Final Rai Confirmed Date Final Rai Date Ultra Sound Latest Days Gestation 0 kpanyik 08/04/2019 09/21/19 20 0 Pre- Flowsheet Flowsheet Date 06/22/2019 Bryant Score Blood Edema Fundus Height Fundus Units Glucose Ketones Leukocytes Nitrite Labor Signs Protein Cervic Dilation Cervic Effacement Cervic Station 27 none trace Type Weight in lbs Pre/Post Dialysis Refused Weight 227.038195717580 BP Diastolic BP Location Tested BP Systolic BP Type 76 130 Fetus Heart Rate Present A 145 Fetus Movement A Yes Comments Pt doing well. Some heartbur n. Instructed to try Pepcid. Pt has already completed 28 week labs including rhogam injection. Flowsheet Date 07/06/2019 Bryant Score Blood Edema Fundus Height Fundus Units Glucose Ketones Leukocytes Nitrite Labor Signs Protein Cervic Dilation Cervic Effacement Cervic Station 29 trace Type Weight in lbs Pre/Post Dialysis Refused Weight 230.782073379382 BP Diastolic BP Location Tested BP Systolic BP Type 78 125 Fetus Heart Rate Present A 129 Fetus Movement A Yes Comments Pt doing well. Plans to get tdap. Flowsheet Date 03/24/2019 Bryant Score Blood Edema Fundus Height Fundus Units Glucose Ketones Leukocytes Nitrite Labor Signs Protein Cervic Dilation Cervic Effacement Cervic Station none 14 trace Type Weight in lbs Pre/Post Dialysis Refused Weight 197.110066998131 BP Diastolic BP Location Tested BP Systolic BP Type 79 135 sitting Fetus Heart Rate Present A 150 Fetus Movement A No Comments at 14+1 by sure LMP= 10 week u/S. Occasional N/V, improving. No other complaints. She already had 1st look/seq 1 Flowsheet Date 04/07/2019 Bryant Score Blood Edema Fundus Height Fundus Units Glucose Ketones Leukocytes Nitrite Labor Signs Protein Cervic Dilation Cervic Effacement Cervic Station trace 16 trace Type Weight in lbs Pre/Post Dialysis Refused Weight 197.657780671634 BP Diastolic BP Location Tested BP Systolic BP Type 72 108 sitting Fetus Heart Rate Present A 160 Fetus Movement A No Comments Flowsheet Date 04/28/2019 Bryant Score Blood Edema Fundus Height Fundus Units Glucose Ketones Leukocytes Nitrite Labor Signs Protein Cervic Dilation Cervic Effacement Cervic Station trace Type Weight in lbs Pre/Post Dialysis Refused Weight 209.752555338430 BP Diastolic BP Location Tested BP Systolic BP Type 79 139 sitting Fetus Heart Rate Present Fetus Movement Comments OB [id number] pt states that serrano ving discharge, vaginal itching, nausea, vomiting, and heartburn, anatomy complete, male Flowsheet Date 05/26/2019 Bryant Score Blood Edema Fundus Height Fundus Units Glucose Ketones Leukocytes Nitrite Labor Signs Protein Cervic Dilation Cervic Effacement Cervic Station trace 23 trace Type Weight in lbs Pre/Post Dialysis Refused Weight 217.981830448777 BP Diastolic BP Location Tested BP Systolic BP Type 79 122 sitting Fetus Heart Rate Present A 156 Fetus Movement A Yes Comments pt states that having some c ramping, discharge, swelling, nausea and vomiting Flowsheet Date 07/20/2019 Bryant Score Blood Edema Fundus Height Fundus Units Glucose Ketones Leukocytes Nitrite Labor Signs Protein Cervic Dilation Cervic Effacement Cervic Station 30 trace Type Weight in lbs Pre/Post Dialysis Refused Weight 237.018761750520 BP Diastolic BP Location Tested BP Systolic BP Type 88 120 sitting Fetus Heart Rate Present A 138 Fetus Movement A Yes Comments Pt will call to schedule pre admission. Flowsheet Date 08/03/2019 Bryant Score Blood Edema Fundus Height Fundus Units Glucose Ketones Leukocytes Nitrite Labor Signs Protein Cervic Dilation Cervic Effacement Cervic Station 33 trace Type Weight in lbs Pre/Post Dialysis Refused Weight 241.68716397579 BP Diastolic BP Location Tested BP Systolic BP Type 83 125 sitting Fetus Heart Rate Present Fetus Movement A Yes Comments Pt had headache and blurry v ision on Wednesday. She does have a headache today but denies v/d or e/p. H/A may be sinus related. I would like for patient to go to L&D for labs however she does not currently have insurance. We have discussed pih symptoms and risks. We have agreed to draw labs in office today. Pt will go home and take a benadryl and rest to see if h/a resolves. If any symptoms pt will call or go to L&D. In previous she did have elevated bp but only in labor. Flowsheet Date 08/16/2019 Bryant Score Blood Edema Fundus Height Fundus Units Glucose Ketones Leukocytes Nitrite Labor Signs Protein Cervic Dilation Cervic Effacement Cervic Station 1+ trace Type Weight in lbs Pre/Post Dialysis Refused Weight 247.990290465018 BP Diastolic BP Location Tested BP Systolic BP Type 76 115 sitting Fetus Heart Rate Present A 148 Fetus Movement A Yes Comments Headaches have improved. Pt is doing well. Starting to notice increased pelvic pressure and it feels like baby has dropped. Flowsheet Date 08/25/2019 Bryant Score Blood Edema Fundus Height Fundus Units Glucose Ketones Leukocytes Nitrite Labor Signs Protein Cervic Dilation Cervic Effacement Cervic Station neg none 37 trace Type Weight in lbs Pre/Post Dialysis Refused Weight 248.151357506352 BP Diastolic BP Location Tested BP Systolic BP Type 77 125 Fetus Heart Rate Present A 158 Fetus Movement A Yes Comments patient states that having b ack pain, contractions, nausea, vomiting, discharge and pressure, GBS done,wants KP or SP for delivery, labor rpecautions Flowsheet Date 09/01/2019 Bryant Score Blood Edema Fundus Height Fundus Units Glucose Ketones Leukocytes Nitrite Labor Signs Protein Cervic Dilation Cervic Effacement Cervic Station neg trace 38 trace 1cm Type Weight in lbs Pre/Post Dialysis Refused Weight 258.643743202199 BP Diastolic BP Location Tested BP Systolic BP Type 77 124 Fetus Heart Rate Present A 150 Fetus Movement A Yes Comments PATIENT IS HAVING PAIN, DISC HARGE, PRESSURE, SWELLING AND NAUSEA, labor precautions, EIL scheduled at 39 weeks with KP Flowsheet Date 09/06/2019 Bryant Score Blood Edema Fundus Height Fundus Units Glucose Ketones Leukocytes Nitrite Labor Signs Protein Cervic Dilation Cervic Effacement Cervic Station 38 trace 1cm Type Weight in lbs Pre/Post Dialysis Refused Weight 257.588729228004 BP Diastolic BP Location Tested BP Systolic BP Type 81 L arm 115 sitting Fetus Heart Rate Present A 134 Fetus Movement A Yes Comments Doing well. MIL scheduled 09/15. Labor precautions Flowsheet Date 09/11/2019 Bryant Score Blood Edema Fundus Height Fundus Units Glucose Ketones Leukocytes Nitrite Labor Signs Protein Cervic Dilation Cervic Effacement Cervic Station 39 trace 1cm Type Weight in lbs Pre/Post Dialysis Refused Weight 255.772401385779 BP Diastolic BP Location Tested BP Systolic BP Type 80 L arm 136 sitting Fetus Heart Rate Present A 143 Fetus Movement A Yes Comments Labor precautions. MIL on 09-15. Flowsheet Date 10/03/2019 Bryant Score Blood Edema Fundus Height Fundus Units Glucose Ketones Leukocytes Nitrite Labor Signs Protein Cervic Dilation Cervic Effacement Cervic Station Type Weight in lbs Pre/Post Dialysis Refused Weight 228.285225704002 BP Diastolic BP Location Tested BP Systolic BP Type 72 112 sitting Fetus Heart Rate Present Fetus Movement Comments Flowsheet Date 10/17/2019 Bryant Score Blood Edema Fundus Height Fundus Units Glucose Ketones Leukocytes Nitrite Labor Signs Protein Cervic Dilation Cervic Effacement Cervic Station Type Weight in lbs Pre/Post Dialysis Refused Weight 226.242014384279 BP Diastolic BP Location Tested BP Systolic BP Type 74 R arm 112 sitting Fetus Heart Rate Present Fetus Movement Comments Flowsheet Date 01/10/2020 Bryant Score Blood Edema Fundus Height Fundus Units Glucose Ketones Leukocytes Nitrite Labor Signs Protein Cervic Dilation Cervic Effacement Cervic Station Type Weight in lbs Pre/Post Dialysis Refused Weight 224.743414801575 BP Diastolic BP Location Tested BP Systolic BP Type 88 121 Fetus Heart Rate Present Fetus Movement Comments Menstrual History Last Menstrual Date Menses Monthly On Bcp Conception Prior Menses Frequency Hcg Plus Date Menarche Onset Age 1012/15/2018 Genetic Screening And Infection History Question Response Note Mental Retardation/Autism false Patient's Age Will Be 35 Years Or Older At Estim ated Date of Delivery false Thalassemia ([place] Citizen, Wolof, Mediterranean, Or Background): MCV < 80 false Neural Tube Defect (Meningomyelocele, Spina Bifi da, Or Anencephaly) false Congenital Heart Defect false Down Syndrome false Nilson-Sachs (eg, Baptism, Cajun, Macanese-Mccarr) f alse Jamie Disease false Sickle Cell Disease Or Trait () false Hemophilia Or Other Blood Disorders false Muscular Dystrophy false Cystic Fibrosis false [facility] Chorea false Intellectual Disability/Autism false If Yes, Was Person Tested For [...] Syphi lis false Other Infection History false History of HIV false History of Hepatitis false Prior GBS-infected child false Hemoglobinopathy Or Carrier false Other Structural Defect false Recent Travel History Outside of Country false Delivery Information Delivery Date Delivery Type Labor Anesthesia Weeks Gestation Incision Type Labor Labor Length Hrs Delivered By Post Complications Tubal Sterilization Discharge Date Comments 0 Induce d [facility]- idural 39.2 false Priscilla Medeiros CNM Discharge Information Feeding Method Contraceptive Method Maternal HG B and HCT Levels Ob Episode Information Episode Created Date Number of Fetuses Patient Bloodtype Patient rh Status Prepregnancy Weight lbs Domestic Partner Domestic Partner Phone Father Name Drum Saw Operator Status 10/04/19 20 1 DELETED Rai Calculation Initial Rai Date Initial Exam Date Initial Exam Provider Initial Ultrasound Date Last Menstrual Period Date Ultra Sound Weeks Gestation 0 Eighteen To Twenty Week Rai Update Ultra Sound Date Fundal Height At Umbil Quickening Date Ultra Sound Latest Weeks Gestation Final Rai Confirmed By Final Rai Confirmed Date Final Rai Date Ultra Sound Latest Days Gestation 0 0 Menstrual History Last Menstrual Date Menses Monthly On Bcp Conception Prior Menses Frequency Hcg Plus Date Menarche Onset Age Delivery Information Delivery Date Delivery Type Labor Anesthesia Weeks Gestation Incision Type Labor Labor Length Hrs Delivered By Post Complications Tubal Sterilization Discharge Date Comments 0 39 Discharge Information Feeding Method Contraceptive Method Maternal HG B and HCT Levels
[2024-10-03 07:21] VITALS: BP 129/73; PULSE 109; RESP 16; TEMP 37.4; O2SAT 100
--- OUTSIDE RECORDS SUMMARY | 2024-10-03 08:29 | XMS_ITS | Clinical Summary ---
Author Organization [facility] Address [address] [place] [address] Care Team Providers Care Mill Operator Name Role Phone Unavailable Primary Care Provider Unavailabl e Source Comments [facility],non-owned Affiliates and Associated Physician Practices is amultiple site organization consisting of ambulatory clinics and hospital sitesin [place], [place], [place] and [place]. This disclosure is being madepursuant to the Care Everywhere program and may not contain all information available regarding this patient. Last updated 17.[facility] Allergies No known active allergies Medications * [...] Comments Blood Pressure 110/64 03/11/2019 11:17 AM COMPUTATIONAL LINGUIST Pulse 74 03/11/2019 11:17 AM COMPUTATIONAL LINGUIST Temperature 37.1 C (98.8 F) 03/11/2019 11:17 AM COMPUTATIONAL LINGUIST Respiratory Rate 16 03/11/2019 11:17 AM COMPUTATIONAL LINGUIST Oxygen Saturation 97% 03/11/2019 11:17 AM COMPUTATIONAL LINGUIST Inhaled Oxygen Concentration - - Weight 83.9 kg (185 lb) 03/11/2019 11:17 AM COMPUTATIONAL LINGUIST Height 172.7 cm (5' 8) 03/11/2019 11:17 AM COMPUTATIONAL LINGUIST Body Mass Index 28.13 03/11/2019 11:17 AM COMPUTATIONAL LINGUIST Plan of Treatment Health Maintenance Due Date [...] age to complete this topic Insurance [facility]
--- OUTSIDE RECORDS SUMMARY | 2024-10-03 08:29 | XMS_ITS | Clinical Summary ---
Author Organization [facility] Address [address] [place] [address] Phone Care Team Providers Care Music Video Director Name Role Phone Joshua Laurent Unavailable Bhavna [...] Care Team Description 09/28/[address] [facility] [address] [place] [address] Bhavna Holley APRN, CNP Medication Renewal Reviewed 08/24/[address] [facility] [address] [place] [address] Bhavna Holley APRN, MARTA Medication Renewal Reviewed 07/23/[address] [facility] [address] [place] [address] Bhavna Holley APRN, MARTA Medication Renewal Reviewed [...] Son 1 Avtar (7) Alive Son 2 Shon (4) Alive Social History Tobacco Use Types Packs/Day Years Used Date Smoking Tobacco: Former Cigarettes 0.3 2 0 05/30/2014 - 05/30/2016 Smokeless Tobacco: Never Tobacco Cessation:Counseling Given: Not Answered Alcohol Use Standard Drinks/Week Comments Yes 1 (1 standard drink = 0.6 oz pur e alcohol) [facility] [employer] Answer Date Recorded In the past 12 months has [employer] electric, gas, oil, or water [employer] threatened to shut off services in your home? No 06/01/2024 Social Connection and Isolation Panel Answer Date Recorded In a typical week, how many times do you talk on the phone with family, friends, or neighbors? Twice a week 06/01/2024 How often do you get togethe r with friends or relatives? Once a week 06/01/2024 How often do you attend [facility] or sikhism services? More than 4 times per year 06/01/2024 Do you belong to any clubs o r organizations such as christianity groups, unions, fraternal or athletic groups, or [...] Total Score - Questions 1-9 0 09/2024 [facility] - Occupational Stress [...] any time in the past 12 m [facility], were you homeless or living in a nursing home (including now)? No 06/01/2024 Education Answer Date Recorded What is the highest level of school you have completed or the highest degree you have received? Some college, no degree 12/12/2020 Sexually Active Control Partners Comments Yes Oral Contraceptive Male Comments No Sex and Gender Information Value Date Recorded Sex Assigned at Female 01/18/2024 10:23 PM COMMERCIAL ART INSTRUCTOR Legal Sex Female 10:59 PM CDT Gender Identity Female 01/18/2024 10:23 PM COMMERCIAL ART INSTRUCTOR Sexual Orientation Straight 01/18/2024 10 :23 PM COMMERCIAL ART INSTRUCTOR Last Filed Vital Signs Vital Sign Reading [...] another condition. Depression Depression Yes Norma Rosario, [facility] Note: Hope to be more confident, have patience, let go of my marriage if needed Goal/Objective: Increase confidence. Anticipated Time Frame for Goal Completion: 6 months Goal Reviewed with: patient Readiness to change: Ready to change Department associated with goal: [facility] Steps to achieve [...] infection due to unprotected sex PATHOLOGY CYTOLOGY CAP JEWEL PLATE ASSEMBLER 01/29/2021 12:00 AM COMMERCIAL ART INSTRUCTOR from Last 3 Months or Most Recently Relevant to Health Maintenance Results * HEPATITIS C ANTIBODY (06/02/2024 9:02 AM CDT) hepatitis C antibody 0.19 <1 S/CO 06/02/2024 9:39 PM CDT [facility] Comment: Signal/Cutoff ratio < 0.79 is Nondetected Signal/Cutoff ratio 0.80-0.99 is Grayzone Signal/Cutoff ratio > 0.99 is Detected Supplemental assays are recommended if signal/cutoff ratio is >/=1.00. Signal/cutoff ratio result >/= 5.00 is 97% predictive of positivity for recombinant immunoblot assay (RIBA) and will be reported to the [place] [facility] as required. Blood Venipuncture / Unknown 06/02/2024 9:02 AM CDT 06/02/2024 9:02 AM CDT us Luisa Cortez TAIL SAWYER, CENTER DIRECTOR CHEMISTRY ORDERABLES Final Result [facility] [address] [place] [address], * PATHOLOGY CYTOLOGY CAP JEWEL PLATE ASSEMBLER (01/29/2021 12:00 AM COMMERCIAL ART INSTRUCTOR) 01/29/2021 us Not On File Provider PATHOLOGY/CYTOLOGY ORDERABL ES Final Result SCAN from Last 3 Months or Most Recently Relevant to Health Maintenance Insurance [place]ID [place] Care Teams Music Video Director Relationship Specialty Start Date End Date Bhavna Holley APRN, CENTER DIRECTOR [address] [place] [address] PCP - General Advanced Practice Nurse 08/21/20 Joshua Laurent Obstetrics & Gynecology 08/05/18
--- OUTSIDE RECORDS SUMMARY | 2024-10-03 08:29 | XMS_ITS | Referral Summary ---
Author Organization [facility] Virtual Care Address [facility] [place] [address] Phone Care Team Providers Care Farm Consultant Name Role Phone Bhavna Holley NP Primary [...] on file Legal Sex Female 1:53 AM MEDICAL RECORD CONSULTANT Gender Identity Female 03/13/2024 7:34 AM MEDICAL RECORD CONSULTANT Sexual Orientation Straight 03/13/2024 7: 34 AM MEDICAL RECORD CONSULTANT Last Filed Vital Signs Vital Sign Reading Time Taken Comments Blood Pressure 131/79 03/11/2024 5:30 PM MEDICAL RECORD CONSULTANT Pulse 69 03/11/2024 5:30 PM MEDICAL RECORD CONSULTANT Temperature 36.6 C (97.8 F) 03/11/2024 2:45 PM MEDICAL RECORD CONSULTANT Respiratory Rate 18 03/11/2024 2:46 PM MEDICAL RECORD CONSULTANT Oxygen Saturation 100% 03/11/2024 5:30 PM MEDICAL RECORD CONSULTANT Inhaled Oxygen Concentration - - Weight 86.2 kg (190 lb) 03/11/2024 2:46 PM MEDICAL RECORD CONSULTANT Height 172.7 cm (5' 8) 03/11/2024 2:46 PM MEDICAL RECORD CONSULTANT Body Mass Index 28.89 03/11/2024 2:46 PM MEDICAL RECORD CONSULTANT Plan of Treatment Not on file Insurance [facility] Care Teams Farm Consultant Relationship Specialty Start Date End Date Bhavna Holley NP [address] [place] [address] PCP - General Emergency Medicine 03/11/24
--- OUTSIDE RECORDS SUMMARY | 2024-10-03 08:29 | XMS_ITS | Clinical Summary ---
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 Gender Identity Female 03/13/2024 7:34 AM STORAGE WORKER Sexual Orientation Straight 03/13/2024 7: 34 AM STORAGE WORKER Obstetrics History Last Filed Vital Signs Vital Sign Reading Time Taken Comments Blood Pressure 131/79 03/11/2024 5:30 PM STORAGE WORKER Pulse 69 03/11/2024 5:30 PM STORAGE WORKER Temperature 36.6 C (97.8 F) 03/11/2024 2:45 PM STORAGE WORKER Respiratory Rate 18 03/11/2024 2:46 PM STORAGE WORKER Oxygen Saturation 100% 03/11/2024 5:30 PM STORAGE WORKER Inhaled Oxygen Concentration - - Weight 86.2 kg (190 lb) 03/11/2024 2:46 PM STORAGE WORKER Height 172.7 cm (5' 8) 03/11/2024 2:46 PM STORAGE WORKER Body Mass Index 28.89 03/11/2024 2:46 PM STORAGE WORKER Plan of Treatment Health Maintenance Due Date [...] 11/04/2007, 08/13, 06/07/2007, Additional history exists Insurance [facility] Care Teams Dancing Master Relationship Specialty Start Date End Date Bhavna Holley NP [address] [place] [address] PCP - General Emergency Medicine 03/11/24
[2024-10-03 08:56] VITALS: BP 117/71; PULSE 98; RESP 17; TEMP 37.6; O2SAT 100
--- NOTE | 2024-10-03 09:43 | ED.GENADULT ---
HPI - General Adult General Chief complaint: Unspecified Stated complaint: generalized joint pain and other complaints Time Seen by Provider: 10/03/24 08:20 Source: patient Mode of arrival: ambulatory Limitations: no limitations History of Present Illness HPI narrative: Patient presents with report of generalized joint pain and body aches all over in addition to muscle spasms. She reports these occurring low abdomen as well throughout lower extremities particularly her ankles hips and back. She has been taking ibuprofen 200 mg tablets x3 q6 hours. She reports she feels disoriented, difficulty following directions, and having painfil breathing. Reports a temperature of 105 Wednesday. She reports her symptoms started at 4:30 a.m. 09/30/2024 and she has been diaphoretic. She notes that her hands feet feel cold. She says her symptoms are worse in the morning and evening. Patient's boyfriend's daughter recently diagnosed with mono. Patient was seen at an urgent care yesterday and told her symptoms were viral she had tested negative for both COVID and influenza. Denies any cough diarrhea. Reports her neck feels stiff. She reports she feels thirsty and feels like her lymph nodes around her ears and in axilla are enlarged. She reports painful breathing PCP Bhavna Francisco through [facility]. 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 Related Data Home Medications ?Medication ?Instructions ?Recorded ?Confirmed ?Last Taken ?Type norgestimate 0.25 mg-ethinyl 1 tablet PO DAILY 03/06/23 10/02/24 Unknown History estradiol 0.035 mg tablet (Estarylla) dextroamphetamine-amphetamine ER 50 mg PO DAILY 10/02/24 10/02/24 Unknown History 25 mg 24hr capsule,extend release Allergies Allergy/AdvReac Type Severity Reaction Status Date / Time No Known Allergies Allergy Verified 10/03/24 07:26 [facility] Past Medical History Medical History Anemia Surgical History Surgical History History of surgery on arm repair of fractured ulna Family History Family History (Updated 08/25/19 @ 12:36 by Meredith Garner RN) Mother Pulmonary embolism Anemia Grandparent Diabetes mellitus Social History Social History Smoking status: Former smoker Second hand tobacco smoke exposure: No Substance use: never Occupation/Education: occupation 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 HEAD: Normocephalic, atraumatic. EYES: Non injected, non icteric ENT: Nares clear, no rhinorrhea or epistaxis. Gross auditory acuity intact. NECK: Supple. No meningismus. Reports stiffness of neck but performs ROM. CHEST: Speaking in full sentences. No respiratory distress. HEART: Tachycardic rate and rhythm. . ABDOMEN: Soft, nondistended. EXTREMITIES: Normal range of motion. No lower extremity edema. SKIN: Warm, no rash but diaphoretic NEURO: No focal deficits. Alert and oriented. Answering questions. Following commands. Normal speech without aphasia or dysarthria. PSYCH: Normal mood and affect. Course Vital Signs Vital signs: Vital Signs Temperature 99.4 F 10/03/24 07:21 Pulse Rate 109 H 10/03/24 07:21 Respiratory Rate 16 10/03/24 07:21 Blood Pressure 129/73 10/03/24 07:21 Pulse Oximetry 100 10/03/24 07:21 Oxygen Delivery Room Air 10/03/24 07:21 Temperature 99.6 F 10/03/24 08:56 Pulse Rate 98 10/03/24 09:58 Respiratory Rate 15 10/03/24 09:58 Blood Pressure 103/79 10/03/24 13:02 Pulse Oximetry 99 10/03/24 09:58 Oxygen Delivery Room Air 10/03/24 07:21 Medical Decision Making MDM Narrative Medical decision making narrative: Patient presents with multiple complaints. She reports recent fever, generalized joint pain and body aches as well as muscle spasms. She notes that she feels these in her low abdomen as her bilateral ankles hips and back. P In the emergency department she is afebrile vital signs notable for mild tachycardia. This improved on repeat assessment without interval intervention. test negative. Her urinalysis has multiple indicators of a possible urinary tract infection and given she has been diaphoretic and having multiple complaints, reasonable to treat. Previous urine culture reviewed but showed no growth. Her dimer is greater than 1. Will proceed with CTA PE imaging and include the abdomen and pelvis given that she has been having complaints here as well. She has a mild leukocytosis. She also has an anemia which represents an acute drop from the most recent lab however it appears per review of multiple preceding labs that she is chronically anemic and that other lab might have represented a degree of hemoconcentration. Anemia is not so significant to believe that it is causing her symptoms. Mild hyponatremia but with other electrolytes normal. ESR and CRP are elevated consistent with a nonspecific inflammation/infection. IV fluids and Tylenol had been ordered. Patient told the nurse approximately 30 minutes later that her there was no change in her pain. Will order small dose IV Valium given she is complaining of muscle pain and cramping. CT with findings consistent with pyelonephritis. Patient discharged with prescription for antibiotic course. Advised to rest and maintain hydration as well use [id number] analgesics medications. Differential Diagnosis Differential Diagnosis: viral; myositis; immunologic; infectious (PNA, UTI); rhabdomyolysis; electrolyte abnormalites; symptomaic anemia Vital Signs Vital Signs: Vital Signs Temperature 99.4 F 10/03/24 07:21 Pulse Rate 109 H 10/03/24 07:21 Respiratory Rate 16 10/03/24 07:21 Blood Pressure 129/73 10/03/24 07:21 Pulse Oximetry 100 10/03/24 07:21 Oxygen Delivery Room Air 10/03/24 07:21 Temperature 99.6 F 10/03/24 08:56 Pulse Rate 98 10/03/24 09:58 Respiratory Rate 15 10/03/24 09:58 Blood Pressure 103/79 10/03/24 13:02 Pulse Oximetry 99 10/03/24 09:58 Oxygen Delivery Room Air 10/03/24 07:21 Lab Data Lab results reviewed: Yes I reviewed the patient's lab results. 10/03/24 09:59 10/03/24 09:59 Labs: Lab Results 10/03/24 10/03/24 Range/Units 09:58 09:59 WBC 11.9 H (4.5-10.0) K/mm3 RBC 3.90 L (4.2-5.4) M/mm3 Hgb 10.9 L D (12.0-15.0) g/dL Hct 32.4 L (37.0-47.0) % MCV 83.1 (80-100) fl MCH 27.9 (26-34) pg MCHC 33.6 (32-36) g/dl RDW 13.3 (11.5-14.5) % Plt Count 236 (150-375) k/mm3 MPV 9.8 (7.4-10.4) fl Immature Gran % (Auto) 0.4 (0-0.5) % Neut % (Auto) 78.8 H (45.5-73.1) % Lymph % (Auto) 9.0 L (18.3-44.2) % [place] % (Auto) 11.6 H (2.6-8.5) % Eos % (Auto) 0.0 (0-4.4) % Baso % (Auto) 0.2 (0.2-1.2) % Lymph # (Auto) 1.07 (0.9-3.2) K/mm3 [place] # (Auto) 1.4 H (0.1-0.6) K/mm3 Eos # (Auto) 0.0 (0-0.3) K/mm3 Baso # (Auto) 0.0 (0.0-0.1) K/mm3 Abs Immat Gran (auto) 0.05 H (0.00-0.031) K/mm3 Absolute Neuts (auto) 9.4 H (1.3-6.7) K/mm3 Absolute Nucleated RBC 0.000 (0.0-0.012) K/mm3 Nucleated RBC % 0.0 (0.0-0.2) % ESR 69 H (0-20) mm/hr D-Dimer 1.22 H (<0.48) ug/mL Sodium 131 L (137-145) mmol/L Potassium 3.7 (3.4-5.0) mmol/L Chloride 100 (98-107) mmol/L Carbon Dioxide 23 (22-30) mmol/L Anion Gap 8 (4-12) mmol/L BUN 5 L D (7-17) mg/dL Creatinine 0.61 L (0.7-1.0) mg/dL Estim Creat Clear Calc 115 ml/min Estimated GFR > 60 (59 - ) Glucose 98 (65-110) mg/dL Calcium 9.1 (8.4-10.2) mg/dL Magnesium 1.9 (1.6-2.3) mg/dL Total Bilirubin 0.5 (0.2-1.3) mg/dL AST 24 (14-36) U/L ALT 19 (6-35) U/L Alkaline Phosphatase 70 (38-126) U/L Total Creatine Kinase 23 L (30-135) U/L C-Reactive Protein 19.8 H (<1.0) mg/dL Total Protein 6.5 (6.3-8.2) g/dL Albumin 3.4 L (3.5-5.1) g/dL Urine Color Yellow (Yellow) Urine Appearance Cloudy H (Clear) Urine pH 6.0 (5.0-9.0) Ur Specific [place] 1.013 (1.001-1.035) Urine Protein 2+ H (Negative) mg/dL Urine Glucose (UA) Negative (Negative) mg/dL Urine Ketones Negative (Negative) mg/dL Ur Blood (Man) Trace (Negative) Urine Nitrate Negative (Negative) Urine Bilirubin Negative (Negative) Urine Urobilinogen 1.0 (<2.0) mg/dL Leukocyte Esterase Rfl 1+ H (Negative) YONIS/UL Urine RBC 11-20 H (0-2) /hpf Urine WBC 51-100 H (0-3) /hpf Ur Squamous Epith Cells Occasional (Few) /hpf Urine Bacteria 1+ H /hpf Urine Casts 0-2 POC Urine HCG, Qual Negative (Negative) Imaging Data Radiologist's impression: Impressions Head CT 10/03/24 10:15 IMPRESSION: 1. No acute intracranial abnormality. Chest X-Ray 10/03/24 10:21 IMPRESSION: 1: NO ACUTE CARDIOPULMONARY DISEASE. Cervical Spine CT 10/03/24 10:23 IMPRESSION: 1. No acute abnormality of the cervical spine. Chest/Abdomen/Pelvis CTA 10/03/24 11:58 IMPRESSION: 1. Patchy hypoperfusion of the kidneys with areas of urothelial thickening centered in the region of the renal pelvis bilaterally. Findings compatible with ascending urinary tract infection with pyelonephritis. Discharge Plan Discharge Clinical Impression: Urinary tract infection in female, Anemia, Acute hyponatremia, Elevated erythrocyte sedimentation rate, CRP elevated, Pyelonephritis Patient Disposition: Home Condition: Stable Instructions: Antibiotic Form, Urinary Tract Infection in Women (DC), Hyponatremia (ED), Kidney Infection (ED), Anemia (ED) Additional Instructions: You have a urinary tract infection that appears to have ascended to your kidneys and this is known as a kidney infection/pyelonephritis. You received your 1st dose of antibiotics IV and the rest of the course has been prescribed. It is important that you take the entire course even if you start to feel better. Follow-up with your primary care physician. If you do not have 1 the name of the doctors listed below. Return to the emergency department with any new or worsening symptoms such as intractable pain not responding to medications, fever >100.4F, intractable nausea/vomiting not responding to Zofran. Acetaminophen/Tylenol (maximum 4000 mg per day) is safe to take with NSAIDs (ibuprofen/Motrin - though recommend taking only 600mg every 8 hours) for pain relief. Rest and maintain your hydration Patient Language: Yakut Prescriptions: New cephalexin 500 mg tablet 500 mg PO QID 10 Days Qty: 40 0RF Rx Instructions: can start 10/04/24 ibuprofen 600 mg tablet 600 mg PO TID PRN (Reason: pain) Qty: 30 0RF acetaminophen 500 mg capsule 1,000 mg PO Q6H PRN (Reason: pain) Qty: 30 0RF ondansetron 4 mg tablet,disintegrating 4 mg PO Q8H PRN (Reason: nausea and vomiting) Qty: 7 0RF No Action norgestimate-ethinyl estradiol [Estarylla] 0.25-35 mg-mcg tablet 1 tablet PO DAILY dextroamphetamine-amphetamine 25 mg capsule,extended release 24hr 50 mg PO DAILY Follow-up/Referrals: PHYSICIAN,LIGHTING DIRECTOR [Primary Care Provider] - Lavell Dubon MD [Physician] - Stand Alone Forms: Work/School Release IP Time of Disposition: 12:40
[2024-10-03 09:58] VITALS: BP 115/71; PULSE 98; RESP 15; O2SAT 99
[2024-10-03 10:03] LABS: BEDSIDEPREGUCG Negative (Negative)
[2024-10-03 10:07] LABS: Hematocrit 32.4 % (37.0-47.0); Hemoglobin 10.9 g/dL (12.0-15.0); Immature Granulocyte Percent A 0.4 % (0-0.5); Lymphocytes Absolute Auto 1.07 K/mm3 (0.9-3.2); Mean Corpuscular HGB Conc 33.6 g/dl (32-36); Mean Corpuscular Hemoglobin 27.9 pg (26-34); Mean Corpuscular Volume 83.1 fl (80-100); Nucleated Red Blood Cells Absolute Auto 0.000 K/mm3 (0.0-0.012); Nucleated Red Blood Cells Perc 0.0 % (0.0-0.2); Platelet Count Result 236 k/mm3 (150-375); Red Blood Count 3.90 M/mm3 (4.2-5.4); White Blood Count 11.9 K/mm3 (4.5-10.0)
[2024-10-03 10:14] LABS: Add Urine Microscopic? YES; Appearance Urine Cloudy (Clear); Glucose Urine UA Negative (Negative); Leukocyte Esterase Ur 1+ LEU/UL (Negative); Nitrate Urine Negative (Negative); Non Pathogenic Casts 0-2; Specific Grav Ur 1.013 (1.001-1.035)
[2024-10-03 10:28] LABS: Alanine Aminotransferase 19 U/L (6-35); Albumin Level 3.4 g/dL (3.5-5.1); Alkaline Phosphatase 70 U/L (38-126); Anion Gap 8 mmol/L (4-12); Aspartate Amino Transferase 24 U/L (14-36); Bilirubin,Total 0.5 mg/dL (0.2-1.3); Blood Urea Nitrogen 5 mg/dL (7-17); Calcium 9.1 mg/dL (8.4-10.2); Carbon Dioxide 23 mmol/L (22-30); Chloride 100 mmol/L (98-107); Estimated CRCL calculation 115 ml/min; Estimated Glomerular Filt Rate > 60; Glucose 98 mg/dL (65-110); Magnesium 1.9 mg/dL (1.6-2.3); Potassium 3.7 mmol/L (3.4-5.0); Sodium 131 mmol/L (137-145); Total Protein 6.5 g/dL (6.3-8.2)
[2024-10-03 10:36] LABS: Creatine Kinase 23 U/L (30-135)
[2024-10-03 10:55] LABS: CRP 19.8 mg/dL (<1.0)
--- NOTE | 2024-10-03 11:16 | PC.NURSE ---
Report given to Mariana Corona RN, all questions answered
[2024-10-03] MEDS: ACETAMINOPHEN 500 MG TABLET 1000 MG PO (11:17)
[2024-10-03] MEDS: SODIUM CHLORIDE 0.9% IV 1,000 ML 999 ML IV CONT (11:18)
--- NOTE | 2024-10-03 11:20 | PC.NURSE ---
Pt to CT at this time.
[2024-10-03] MEDS: diazePAM INJ (*CRX) 10 MG/2 ML SYRINGE 2.5 MG IV PUSH (12:00)
[2024-10-03] MEDS: cefTRIAXone 1 GM in SODIUM CHLORIDE 0.9% IV 50 ML 100 ML IVPB (12:13)
[2024-10-03 13:02] VITALS: BP 103/79
== END 2024-10-03 13:03 | disposition home or self-care (01) ==
PROVIDERS: Emergency Provider Student in an Organized Health Care Education/Training Program
DX: N39.0 Urinary tract infection, site not specified (principal); D64.9 Anemia, unspecified; E87.1 Hypo-osmolality and hyponatremia; R79.82 Elevated C-reactive protein (CRP); N12 Tubulo-interstitial nephritis, not specified as acute or chronic; R70.0 Elevated erythrocyte sedimentation rate
CPT/HCPCS: 36415; 70450; 71045; 71275; 72125; 74177; 80053; 81001; 81025; 82550; 83735; 85025; 85380; 85652; 86140; 87086; 96361; 96365; 96375; 99284; A9270; J0696; J3360; J7030; Q9967